=== PATIENT | female | born 1930 | race Caucasian/White ===

== ENCOUNTER 2017-07-06 12:11 | Inpatient (IN) | payer BC, OTHER ==
--- NOTE | 2017-07-06 15:50 | PDOC ---
History of Present Illness - General History Source: Patient, Family Exam Limitations: Clinical Condition - History of Present Illness Initial Comments: 07/06/17 17:27 The patient is a 87 year old female, with a significant past medical history of hypertension, hyperlipidemia, hypothyroidism, overactive bladder, and seizures, who presents to the emergency department with increased confusion and changes in mental status for approximately 2 days. As per daughter, the patient was last known to be at baseline , however, yesterday, daughters brother in law noted increased confusion and changes in speech. Brother in Law has noted patient has been repeating her words and states patient reported she did not know where she was while in her home last night. Daughter reports patient has decreased appetite. Patient endorses mild dry cough, but denies any fever, chills, headache, dizziness, or lightheadedness. She denies any chest pain, shortness of breath, diaphoresis, or palpitations. She denies any abdominal pain, nausea, vomiting, diarrhea, or constipation. She denies any dysuria, hematuria, frequency, or urgency. Patients has no other complaints at this time, but history is limited due to current mental status. Allergies: NKDA Past Surgical History: None reported Social History: Non smoker. No ETOH or recreational drug use. PCP: Dr. Read <Lele Reese - Last Filed: 07/06/17 17:27> <Cindy Carey - Last Filed: 07/06/17 23:08> - General Chief Complaint: Altered Mental Status Stated Complaint: DIZZINESS Time Seen by Provider: 07/06/17 15:24 Past History - Past Medical History CVA: No COPD: No DVT: No Disorders: Yes (OVERACTIVE BLADDER) HTN: Yes Hypercholesterolemia: Yes Seizures: Yes Thyroid Disease: Yes (hypo) - Immunization History Immunization Up to Date: No - Suicide/Smoking/Psychosocial Hx Smoking Status: No Smoking History: Never smoked Have you smoked in the past 12 months: No Number of Cigarettes Smoked Daily: 0 Information on smoking cessation initiated: No Hx Alcohol Use: No Drug/Substance Use Hx: No Substance Use Type: None <Lele Reese - Last Filed: 07/06/17 17:27> <Cnidy Carey - Last Filed: 07/06/17 23:08> - Past Medical History Allergies/Adverse Reactions: Allergies Allergy/AdvReac Type Severity Reaction Status Date / Time No Known Allergies Allergy Verified 07/06/17 12:17 Home Medications: Ambulatory Orders Levothyroxine [Synthroid -] 75 mcg PO DAILY 10/18/13 Hydrochlorothiazide [Hctz -] 25 mg PO DAILY 09/30/14 Simvastatin 10 mg PO DAILY 09/30/14 Review of Systems - Review of Systems Able to Perform ROS?: No Comments:: 07/06/17 17:28 May be limited due to patients clinical condition. CONSTITUTIONAL: Present: Loss of appetite No reported: Fever, Chills, Diaphoresis, Generalized Weakness, Malaise HEENT: No reported: Rhinorrhea, Nasal Congestion, Throat Pain, Throat Swelling, Difficulty Swallowing, Mouth Swelling, Ear Pain, Eye Pain, Visual Changes CARDIOVASCULAR: No reported: Chest Pain, Syncope, Palpitations, Irregular Heart Rate, Lightheadedness, Peripheral Edema RESPIRATORY: Present: Cough No reported: Shortness of Breath, SOB with Exertion, Orthopnea, Wheezing, Stridor, Hemoptysis GASTROINTESTINAL: No reported: Abdominal pain, Abdominal Distension, Nausea, Vomiting, Diarrhea, Constipation, Melena, Hematochezia GENITOURINARY: No reported: Dysuria, Frequency, Urgency, Hesitancy, Flank Pain, Genital Pain MUSCULOSKELETAL: No reported: Myalgia, Arthralgia, Joint Swelling, Back pain, Neck Pain SKIN: No reported: Rash, Itching, Pallor HEMEATOLOGIC/IMMUNOLOGIC: No reported: Easy Bleeding, Easy Bruising, Lymphadenopathy, Frequent infections ENDOCRINE: No reported: Unexplained Weight Gain, Unexplained Weight Loss, Heat Intolerance , Cold Intolerance NEUROLOGIC: Present: Mental status changes No reported: Headache, Focal Weakness, Paresthesias, Vertigo, Lightheadedness, Unsteady Gait, Seizure, Incontinence PSYCHIATRIC: <Mary AnnGersonLele - Last Filed: 07/06/17 17:27> *Physical Exam - Vital Signs Last Vital Signs Temp Pulse Resp BP Pulse Ox 99.0 F 85 17 146/78 95 07/06/17 12:23 07/06/17 12:23 07/06/17 12:23 07/06/17 12:23 07/06/17 12:23 - Physical Exam Comments: 07/06/17 17:28 GENERAL: The patient is awake, alert, andoriented x 1 (self) Nontoxic - in no acute distress. HEAD: Normocephalic, atraumatic. EYES: extraocular movements intact, sclera anicteric, conjunctiva clear. ENT: Normal voice, Moist mucous membranes. NECK: Normal range of motion, supple LUNGS: Breath sounds equal, clear to auscultation bilaterally. No wheezes, no rhonchi, no rales. HEART: Regular rate and rhythm, normal S1 and S2 without murmur, rub or gallop. ABDOMEN: minimal surpapubic tenderness, normoactive bowel sounds. No guarding, no rebound. . No CVA tenderness EXTREMITIES: Normal range of motion, no edema. No clubbing or cyanosis. NEUROLOGICAL: CN2-12 intact and symmetric, repetitive speech, moving upper and lower extermities spontaneously and symmetrically, sensation intact in face, upper/lower extremities PSYCH: Normal mood, normal affect. SKIN:hot touch, Dry, normal turgor, <Mary Ann,Lele - Last Filed: 07/06/17 17:27> - Vital Signs Last Vital Signs Temp Pulse Resp BP Pulse Ox 102.2 F H 92 H 20 152/82 98 07/06/17 21:24 07/06/17 21:24 07/06/17 21:24 07/06/17 21:24 07/06/17 21:24 <Cindy Carey - Last Filed: 07/06/17 23:08> ED Treatment Course - LABORATORY CBC & Chemistry Diagram: 07/06/17 17:25 07/06/17 17:25 - ADDITIONAL ORDERS Additional order review: Laboratory Results 07/06/17 07/06/17 07/06/17 20:50 17:25 17:25 PT with INR INR PTT (Actin FS) VBG pH 7.44 H POC VBG pCO2 41.0 POC VBG pO2 101.0 H Mixed VBG HCO3 27.0 H Sodium Potassium Chloride Carbon Dioxide Anion Gap BUN Creatinine Creat Clearance w eGFR Random Glucose Lactic Acid 1.1 Calcium Magnesium Total Bilirubin AST ALT Alkaline Phosphatase Creatine Kinase Troponin I Total Protein Albumin TSH Urine Color Era Urine Appearance Slcloudy Urine pH 5.0 D Ur Specific [place] 1.028 Urine Protein 1+ H Urine Glucose (UA) Negative Urine Ketones 1+ H Urine Blood Negative Urine Nitrite Negative Urine Bilirubin Negative Urine Urobilinogen 2.0 H Ur Leukocyte Esterase Negative Urine WBC (Auto) 3 Urine RBC (Auto) 5 Ur Epithelial Cells Rare Hyaline Casts 1 Urine Mucus Moderate Blood Type Antibody Screen 07/06/17 07/06/17 07/06/17 17:25 17:25 17:25 PT with INR INR PTT (Actin FS) 29.8 VBG pH POC VBG pCO2 POC VBG pO2 Mixed VBG HCO3 Sodium 137 Potassium 3.3 L Chloride 100 Carbon Dioxide 29 Anion Gap 8 BUN 23 H D Creatinine 0.9 D Creat Clearance w eGFR 59.23 Random Glucose 110 H Lactic Acid Calcium 9.1 Magnesium 2.2 Total Bilirubin 0.5 AST 28 D ALT 31 D Alkaline Phosphatase 63 Creatine Kinase 103 Troponin I < 0.02 Total Protein 7.1 D Albumin 3.8 D TSH 0.25 L Urine Color Urine Appearance Urine pH Ur Specific [place] Urine Protein Urine Glucose (UA) Urine Ketones Urine Blood Urine Nitrite Urine Bilirubin Urine Urobilinogen Ur Leukocyte Esterase Urine WBC (Auto) Urine RBC (Auto) Ur Epithelial Cells Hyaline Casts Urine Mucus Blood Type A POSITIVE Antibody Screen Negative 07/06/17 17:25 PT with INR 11.60 INR 1.03 PTT (Actin FS) VBG pH POC VBG pCO2 POC VBG pO2 Mixed VBG HCO3 Sodium Potassium Chloride Carbon Dioxide Anion Gap BUN Creatinine Creat Clearance w eGFR Random Glucose Lactic Acid Calcium Magnesium Total Bilirubin AST ALT Alkaline Phosphatase Creatine Kinase Troponin I Total Protein Albumin TSH Urine Color Urine Appearance Urine pH Ur Specific [place] Urine Protein Urine Glucose (UA) Urine Ketones Urine Blood Urine Nitrite Urine Bilirubin Urine Urobilinogen Ur Leukocyte Esterase Urine WBC (Auto) Urine RBC (Auto) Ur Epithelial Cells Hyaline Casts Urine Mucus Blood Type Antibody Screen 07/06/17 17:25 RBC 4.76 MCV 88.8 MCHC 33.8 RDW 13.4 D MPV 7.8 Neutrophils % 70.6 Lymphocytes % 14.8 Monocytes % 13.8 H Eosinophils % 0.1 D Basophils % 0.7 - Medications Given in the ED: ED Medications Discontinued Medications Generic Name Dose Route Start Last Admin Trade Name Freq PRN Reason Stop Dose Admin Acetaminophen 650 mg 07/06/17 20:58 07/06/17 21:28 Tylenol - PO 07/06/17 20:59 650 mg ONCE ONE Administration <Cindy Carey - Last Filed: 07/06/17 23:08> Medical Decision Making - Medical Decision Making 07/06/17 16:16 87y F hx of htn, hl, hypothyfidsim, sz, overactive bladder presents with AMS - per family the pt has not been herself since yesterday - alittle more confused, poor appetitie. family states she is more confused than usual, normally she may be a little forgetful but can carry a conversation but today has been very confused and repetitive on exam the pt appears warm to the touch neuro exam intact pulm exam normal mild lower abodmianl tendneess suspect possible UTI/.occult infection, consider CVA, metaoblic dernagement 07/06/17 17:[address] ramirez - request MRI/MRA - CT L MCA questionable <Lele Reese - Last Filed: 07/06/17 17:27> *DC/Admit/Observation/Transfer <Lele Reese - Last Filed: 07/06/17 17:27> <Cindy Carey - Last Filed: 07/06/17 23:08> Diagnosis at time of Disposition: Influenza Altered mental status Qualifiers: Altered mental status type: unspecified Qualified Code(s): R41.82 - Altered mental status, unspecified - Discharge Dispostion Condition at time of disposition: Stable - Referrals Referrals: Crystal Read MD [Primary Care Provider] - - Patient Instructions - Post Discharge Activity
[2017-07-06 17:41] LABS: BASO % 0.7 % (0-2.0); EOS % 0.1 % (0-4.5); HEMATOCRIT 42.2 % (32.4-45.2); HEMOGLOBIN 14.3 GM/dL (10.7-15.3); LYMPH % 14.8 % (8-40); MCHC 33.8 g/dl (32.0-36.0); MEAN CELL VOLUME 88.8 fl (80-96); MEAN PLT VOLUME 7.8 fl (7.5-11.1); MONO % 13.8 % (3.8-10.2); NEUT % 70.6 % (42.8-82.8); PLATELET COUNT 243 K/MM3 (134-434); RBC 4.76 M/mm3 (3.60-5.2); RDW 13.4 % (11.6-15.6); WHITE BLOOD COUNT 7.2 K/mm3 (4.0-10.0)
[2017-07-06 18:08] LABS: ALBUMIN 3.8 g/dl (3.4-5.0); ANION GAP 8 (8-16); BILIRUBIN,TOTAL 0.5 mg/dL (0.2-1.0); BLOOD UREA NITROGEN 23 mg/dL (7-18); CALCIUM 9.1 mg/dL (8.5-10.1); CHLORIDE 100 mmol/L (98-107); CO2 29 mmol/L (21-32); CREATININE 0.9 mg/dL (0.55-1.02); GLUCOSE,RANDOM 110 mg/dL (74-106); MAGNESIUM 2.2 mg/dL (1.8-2.4); POTASSIUM 3.3 mmol/L (3.5-5.1); SGOT/AST 28 U/L (15-37); SGPT/ALT 31 U/L (12-78); SODIUM 137 mmol/L (136-145); TOT PROT 7.1 g/dl (6.4-8.2); VENOUS PH 7.44 (7.32-7.42)
[2017-07-06 18:16] LABS: ALK PHOS 63 U/L (45-117)
[2017-07-06 18:24] LABS: INR 1.03 (0.82-1.09); PROTHROMBIN TIME (PATIENT) 11.6 SEC (9.98-11.88)
[2017-07-06] MEDS ORDERED: ACETAMINOPHEN 325 MG TABLET (FP) PO ONE (20:58)
[2017-07-06 21:21] LABS: URINE APPEARANCE SLCLOUDY; URINE BILIRUBIN NEGATIVE (NEGATIVE); URINE BLOOD NEGATIVE (NEGATIVE); URINE COLOR AMBER; URINE GLUCOSE (UA) NEGATIVE (NEGATIVE); URINE KETONE 1+ (NEGATIVE); URINE LEUK ESTERASE NEGATIVE (NEGATIVE); URINE NITRITE NEGATIVE (NEGATIVE)
[2017-07-06] MEDS ORDERED: ACETAMINOPHEN 325 MG TABLET (FP) ONE (21:26)
[2017-07-06 21:46] LABS: URINE PROTEIN 1+ (NEGATIVE)
[2017-07-06 22:43] LABS: EPI CELLS RARE /HPF (FEW); URINE HYALINE CAST 1 /lpf; URINE MUCUS MODERATE
--- NOTE | 2017-07-06 23:20 | PDOC ---
*Physical Exam - Vital Signs Last Vital Signs Temp Pulse Resp BP Pulse Ox 102.2 F H 92 H 20 152/82 98 07/06/17 21:24 07/06/17 21:24 07/06/17 21:24 07/06/17 21:24 07/06/17 21:24 ED Treatment Course - LABORATORY CBC & Chemistry Diagram: 07/06/17 17:25 07/06/17 17:25 - ADDITIONAL ORDERS Additional order review: Laboratory Results 07/06/17 07/06/17 07/06/17 20:50 17:25 17:25 PT with INR INR PTT (Actin FS) VBG pH 7.44 H POC VBG pCO2 41.0 POC VBG pO2 101.0 H Mixed VBG HCO3 27.0 H Sodium Potassium Chloride Carbon Dioxide Anion Gap BUN Creatinine Creat Clearance w eGFR Random Glucose Lactic Acid 1.1 Calcium Magnesium Total Bilirubin AST ALT Alkaline Phosphatase Creatine Kinase Troponin I Total Protein Albumin TSH Urine Color Era Urine Appearance Slcloudy Urine pH 5.0 D Ur Specific [place] 1.028 Urine Protein 1+ H Urine Glucose (UA) Negative Urine Ketones 1+ H Urine Blood Negative Urine Nitrite Negative Urine Bilirubin Negative Urine Urobilinogen 2.0 H Ur Leukocyte Esterase Negative Urine WBC (Auto) 3 Urine RBC (Auto) 5 Ur Epithelial Cells Rare Hyaline Casts 1 Urine Mucus Moderate Blood Type Antibody Screen 07/06/17 07/06/17 07/06/17 17:25 17:25 17:25 PT with INR INR PTT (Actin FS) 29.8 VBG pH POC VBG pCO2 POC VBG pO2 Mixed VBG HCO3 Sodium 137 Potassium 3.3 L Chloride 100 Carbon Dioxide 29 Anion Gap 8 BUN 23 H D Creatinine 0.9 D Creat Clearance w eGFR 59.23 Random Glucose 110 H Lactic Acid Calcium 9.1 Magnesium 2.2 Total Bilirubin 0.5 AST 28 D ALT 31 D Alkaline Phosphatase 63 Creatine Kinase 103 Troponin I < 0.02 Total Protein 7.1 D Albumin 3.8 D TSH 0.25 L Urine Color Urine Appearance Urine pH Ur Specific [place] Urine Protein Urine Glucose (UA) Urine Ketones Urine Blood Urine Nitrite Urine Bilirubin Urine Urobilinogen Ur Leukocyte Esterase Urine WBC (Auto) Urine RBC (Auto) Ur Epithelial Cells Hyaline Casts Urine Mucus Blood Type A POSITIVE Antibody Screen Negative 07/06/17 17:25 PT with INR 11.60 INR 1.03 PTT (Actin FS) VBG pH POC VBG pCO2 POC VBG pO2 Mixed VBG HCO3 Sodium Potassium Chloride Carbon Dioxide Anion Gap BUN Creatinine Creat Clearance w eGFR Random Glucose Lactic Acid Calcium Magnesium Total Bilirubin AST ALT Alkaline Phosphatase Creatine Kinase Troponin I Total Protein Albumin TSH Urine Color Urine Appearance Urine pH Ur Specific [place] Urine Protein Urine Glucose (UA) Urine Ketones Urine Blood Urine Nitrite Urine Bilirubin Urine Urobilinogen Ur Leukocyte Esterase Urine WBC (Auto) Urine RBC (Auto) Ur Epithelial Cells Hyaline Casts Urine Mucus Blood Type Antibody Screen 07/06/17 22:10 Influenza Types A,B Antigen (BRUCE) - Final Nasopharyngeal Swab - Final 07/06/17 17:25 RBC 4.76 MCV 88.8 MCHC 33.8 RDW 13.4 D MPV 7.8 Neutrophils % 70.6 Lymphocytes % 14.8 Monocytes % 13.8 H Eosinophils % 0.1 D Basophils % 0.7 - Medications Given in the ED: ED Medications Discontinued Medications Generic Name Dose Route Start Last Admin Trade Name Freq PRN Reason Stop Dose Admin Acetaminophen 650 mg 07/06/17 20:58 07/06/17 21:28 Tylenol - PO 07/06/17 20:59 650 mg ONCE ONE Administration Medical Decision Making - Medical Decision Making 07/06/17 23:44 Late entry- patient endorsed to me at 7pm signout by Dr. Reese. Presented with AMS , difficulty with word-finding x2 days. She denies any complaints at present. Found to have fever on rectal temp. UA was negative, but flu swab was positive. CTH was abnormal, but unclear if this is related to current presentation. Discussed with Dr. Moreira regarding admission, flu swab, and CT findings as well as recommendation for MRI/MRA. Will admit to his service. *DC/Admit/Observation/Transfer Diagnosis at time of Disposition: Influenza Altered mental status Qualifiers: Altered mental status type: unspecified Qualified Code(s): R41.82 - Altered mental status, unspecified Sepsis Qualifiers: Sepsis type: sepsis due to unspecified organism Qualified Code(s): A41.9 - Sepsis, unspecified organism Stroke Qualifiers: CVA mechanism: unspecified Qualified Code(s): I63.9 - Cerebral infarction, unspecified - Discharge Dispostion Condition at time of disposition: Stable Admit: Yes - Referrals - Patient Instructions - Post Discharge Activity
[2017-07-06] MEDS ORDERED: SODIUM CHLORIDE 1,000 ML IV SCH (23:30)
--- NOTE | 2017-07-06 23:55 | HP ---
Admitting History and Physical - Primary Care Physician PCP: Dr Janie Alva - Admission History of Present Illness: 87 year old female, with a significant past medical history of hypertension, hyperlipidemia, hypothyroidism, overactive bladder, and seizures, admitted with increased confusion and changes in mental status for approximately 2 days. As per son, the patient was last known to be at baseline , however, yesterday, daughters brother in law noted increased confusion and changes in speech. Brother in Law has noted patient has been repeating her words and states patient reported she did not know where she was while in her home last night. Daughter reports patient has decreased appetite. Patient endorses mild dry cough, but denies any fever, chills, headache, dizziness, or lightheadedness. She denies any chest pain, shortness of breath, diaphoresis, or palpitations. She denies any abdominal pain, nausea, vomiting, diarrhea, or constipation. She denies any dysuria, hematuria, frequency, or urgency. Patients has no other complaints at this time, but history is limited due to current mental status. History Source: Patient, Family Member, Medical Record Limitations to Obtaining History: Dementia - Past Medical History [employer]: Yes: Dementia Cardiovascular: Yes: HTN, Hyperlipdemia Musculoskeletal: Yes: Osteoarthritis - Smoking History Smoking history: Never smoked Have you smoked in the past 12 months: No Aproximately how many cigarettes per day: 0 - Alcohol/Substance Use Hx Alcohol Use: No Home Medications - Allergies Allergies/Adverse Reactions: Allergies Allergy/AdvReac Type Severity Reaction Status Date / Time No Known Allergies Allergy Verified 07/06/17 12:17 - Home Medications Home Medications: Ambulatory Orders Levothyroxine [Synthroid -] 75 mcg PO DAILY 10/18/13 Hydrochlorothiazide [Hctz -] 25 mg PO DAILY 09/30/14 Simvastatin 10 mg PO DAILY 09/30/14 Physical Examination Vital Signs: Vital Signs Temperature 102.2 F H 07/06/17 21:24 Pulse Rate 92 H 07/06/17 21:24 Respiratory Rate 20 07/06/17 21:24 Blood Pressure 152/82 07/06/17 21:24 O2 Sat by Pulse Oximetry (%) 98 07/06/17 21:24 Labs: CBC, BMP 07/06/17 17:25 07/06/17 17:25 Problem List - Problems (1) Altered mental status Code(s): R41.82 - ALTERED MENTAL STATUS, UNSPECIFIED Qualifiers: Altered mental status type: unspecified Qualified Code(s): R41.82 - Altered mental status, unspecified (2) Sepsis Code(s): A41.9 - SEPSIS, UNSPECIFIED ORGANISM Qualifiers: Sepsis type: sepsis due to unspecified organism Qualified Code(s): A41.9 - Sepsis, unspecified organism (3) Influenza Code(s): J11.1 - FLU DUE TO UNIDENTIFIED INFLUENZA VIRUS W OTH RESP MANIFEST (4) Stroke Code(s): I63.9 - CEREBRAL INFARCTION, UNSPECIFIED Qualifiers: CVA mechanism: unspecified Qualified Code(s): I63.9 - Cerebral infarction, unspecified (5) Hypokalemia Code(s): E87.6 - HYPOKALEMIA Assessment/Plan (1) Altered mental status Code(s): R41.82 - ALTERED MENTAL STATUS, UNSPECIFIED Qualifiers: Altered mental status type: unspecified Qualified Code(s): R41.82 - Altered mental status, unspecified (2) Influenza Code(s): J11.1 - FLU DUE TO UNIDENTIFIED INFLUENZA VIRUS W OTH RESP MANIFEST (3) Sepsis Code(s): A41.9 - SEPSIS, UNSPECIFIED ORGANISM Qualifiers: Sepsis type: sepsis due to unspecified organism Qualified Code(s): A41.9 - Sepsis, unspecified organism (4) Stroke Code(s): I63.9 - CEREBRAL INFARCTION, UNSPECIFIED Qualifiers: CVA mechanism: unspecified Qualified Code(s): I63.9 - Cerebral infarction, unspecified (5) Hypokalemia Code(s): E87.6 - HYPOKALEMIA
[2017-07-07] MEDS ORDERED: OSELTAMIVIR PHOSPHATE 75 MG CAPSULE PO ONE (00:46)
[2017-07-07] MEDS ORDERED: POTASSIUM CHLORIDE TABS 10 MEQ TABLET.ER (FP) ONE (00:56)
[2017-07-07] MEDS ORDERED: OSELTAMIVIR PHOSPHATE 75 MG CAPSULE ONE (00:56)
[2017-07-07] MEDS ORDERED: HEPARIN NA (PORCINE) 5,000 UNITS/ML 1ML VIAL ONE (00:57)
[2017-07-07] MEDS ORDERED: KCL 10 MEQ IVPB 10 MEQ/100 ML INFUS.BAG IVPB ONE ×2 (00:58→02:54)
[2017-07-07] MEDS: KCL 10 MEQ IVPB 10 MEQ/100 ML INFUS.BAG IVPB SCH ×2 (01:21→04:00)
[2017-07-07] MEDS ORDERED: SODIUM CHLORIDE 1,000 ML IV STA (01:35)
[2017-07-07 02:36] LABS: ANION GAP 13 (8-16); BLOOD UREA NITROGEN 29 mg/dL (7-18); CALCIUM 9.1 mg/dL (8.5-10.1); CHLORIDE 101 mmol/L (98-107); CO2 25 mmol/L (21-32); CREATININE 1.2 mg/dL (0.55-1.02); GLUCOSE,RANDOM 136 mg/dL (74-106); SODIUM 139 mmol/L (136-145)
[2017-07-07 02:40] LABS: POTASSIUM 2.8 mmol/L (3.5-5.1)
[2017-07-07] MEDS: D5-1/2NS+20 MEQ KCL - 20 MEQ/1,000 ML INFUS.BAG IV SCH (03:57)
[2017-07-07 06:16] LABS: BASO % 0.7 % (0-2.0); EOS % 0.1 % (0-4.5); HEMATOCRIT 39.1 % (32.4-45.2); HEMOGLOBIN 13.3 GM/dL (10.7-15.3); LYMPH % 19.8 % (8-40); MCH 30.4 pg (25.7-33.7); MEAN CELL VOLUME 89.5 fl (80-96); MEAN PLT VOLUME 7.5 fl (7.5-11.1); MONO % 12.5 % (3.8-10.2); NEUT % 66.9 % (42.8-82.8); PLATELET COUNT 200 K/MM3 (134-434); RBC 4.37 M/mm3 (3.60-5.2); RDW 13.1 % (11.6-15.6); WHITE BLOOD COUNT 6.3 K/mm3 (4.0-10.0)
[2017-07-07] MEDS ORDERED: LEVOTHYROXINE NA 25 MCG TABLET (FP) ONE (06:52)
[2017-07-07] MEDS ORDERED: POTASSIUM CHLORIDE TABS 20 MEQ TABLET.ER (FP) PO ONE (06:52)
[2017-07-07] MEDS: POTASSIUM CHLORIDE TABS 20 MEQ TABLET.ER (FP) PO SCH ×2 (07:06→14:32)
[2017-07-07] MEDS: LEVOTHYROXINE NA 75 MCG TABLET (FP) PO SCH (07:06)
[2017-07-07] MEDS: HYDROCHLOROTHIAZIDE 25 MG TABLET (FP) PO SCH (10:45)
[2017-07-07] MEDS: HEPARIN NA (PORCINE) 5,000 UNITS/ML 1ML VIAL SQ SCH ×2 (10:46→21:19)
--- NOTE | 2017-07-07 13:04 | EKG ---
Test Reason : Blood Pressure : / mmHG Vent. Rate : 084 BPM Atrial Rate : 084 BPM P-R Int : 136 ms QRS Dur : 086 ms QT Int : 358 ms P-R-T Axes : 020 -26 026 degrees QTc Int : 423 ms SINUS RHYTHM WITH PREMATURE ATRIAL COMPLEXES NONSPECIFIC ST ABNORMALITY ABNORMAL ECG WHEN COMPARED WITH ECG OF 18-OCT-2013 06:23, PREMATURE ATRIAL COMPLEXES ARE NOW PRESENT Confirmed by JACKELIN FINLEY, CHUCKY ([id number]) on 07/07/2017 1:04:34 PM Referred By: Confirmed By:CHUCKY BENÍTEZ MD
[2017-07-07 15:58] VITALS: BMI 28.7
[2017-07-07] MEDS ORDERED: ACETAMINOPHEN 325 MG TABLET (FP) PO PRN (16:59)
--- NOTE | 2017-07-07 18:35 | CON.ID ---
Consult Consult Specialty:: infectious diseases Reason for Consultation:: fever,confusion - History of Present Illness Chief Complaint: confusion History of Present Illness: 87 year old female, with a significant past medical history of hypertension, hyperlipidemia, hypothyroidism, overactive bladder, and seizures, admitted with increased confusion and changes in mental status for approximately 2 days. As per son, the patient was last known to be at baseline , however, yesterday, daughters brother in law noted increased confusion and changes in speech. Brother in Law has noted patient has been repeating her words and states patient reported she did not know where she was while in her home last night. Daughter reports patient has decreased appetite. Patient endorses mild dry cough, but denies any fever, chills, headache, dizziness, or lightheadedness. She denies any chest pain, shortness of breath, diaphoresis, or palpitations. She denies any abdominal pain, nausea, vomiting, diarrhea, or constipation. She denies any dysuria, hematuria, frequency, or urgency. Patients has no other complaints at this time, but history is limited due to current mental status. according to the son he had flu during and then he thinks he gave it to his mother and son patient was worked up here and did find the flu to be positive patient is awake and alert but she is confused son in the room who gave me most of the history.also of note is that the patient has started to cough though currently it is a dry cough also patient has spiked a fever now - History Source History Provided By: Family Member Limitations to Obtaining History: Clinical Condition - Alcohol/Substance Use Hx Alcohol Use: No - Smoking History Smoking history: Never smoked Have you smoked in the past 12 months: No Aproximately how many cigarettes per day: 0 Home Medications - Allergies Allergies/Adverse Reactions: Allergies Allergy/AdvReac Type Severity Reaction Status Date / Time No Known Allergies Allergy Verified 07/06/17 12:17 - Home Medications Home Medications: Ambulatory Orders Levothyroxine [Synthroid -] 75 mcg PO DAILY 10/18/13 Hydrochlorothiazide [Hctz -] 25 mg PO DAILY 09/30/14 Simvastatin 10 mg PO DAILY 09/30/14 Review of Systems Unable to obtain ROS, reason: unable Physical Exam Vital Signs: Vital Signs Temperature 101 F H 07/07/17 14:30 Pulse Rate 67 07/07/17 14:30 Respiratory Rate 18 07/07/17 14:30 Blood Pressure 162/70 07/07/17 14:30 O2 Sat by Pulse Oximetry (%) 94 L 07/07/17 14:30 Constitutional: Yes: Well Nourished, No Distress, Other Eyes: Yes: Conjunctiva Clear HENT: Yes: Atraumatic Neck: Yes: Supple, Trachea Midline Cardiovascular: Yes: Regular Rate and Rhythm Respiratory: Yes: On Nasal O2, Poor Air Entry, Rhonchi, Other (crackles) Gastrointestinal: Yes: Normal Bowel Sounds, Soft Musculoskeletal: Yes: WNL Extremities: Yes: WNL Neurological: Yes: Alert, Confusion Psychiatric: Yes: Alert, Other Labs: CBC, BMP 07/07/17 06:00 Imaging - Results Chest X-ray: Report Reviewed, Image Reviewed Cat Scan: Report Reviewed, Image Reviewed Assessment/Plan after looking at the history and the patient i am worried that the patient could be heading towards development of pneumonia.also her creatinine has increased influenza fever confusion pna plan will stat patient on zosyn for now will see how the patient behaves hydration close watch await neurology input
[2017-07-07] MEDS ORDERED: PIPERACILLIN/TAZOB 3.375 GM 50 ML IVPB SCH (18:45)
[2017-07-07] MEDS: PIPERACILLIN/TAZOB 3.375 GM 3.375 GM in DEXTROSE 5%-WATER - 100 ML IVPB SCH (19:31)
[2017-07-07 19:38] LABS: ALBUMIN 3.2 g/dl (3.4-5.0); ANION GAP 5 (8-16); BILIRUBIN,TOTAL 0.4 mg/dL (0.2-1.0); BLOOD UREA NITROGEN 18 mg/dL (7-18); CHLORIDE 105 mmol/L (98-107); CO2 28 mmol/L (21-32); CREATININE 0.7 mg/dL (0.55-1.02); GLUCOSE,RANDOM 109 mg/dL (74-106); SGOT/AST 40 U/L (15-37); SGPT/ALT 38 U/L (12-78); SODIUM 138 mmol/L (136-145); TOT PROT 5.8 g/dl (6.4-8.2)
[2017-07-07 19:39] LABS: ALK PHOS 49 U/L (45-117)
--- NOTE | 2017-07-07 20:16 | PN ---
Progress Note, Physician Chief Complaint: Pt having fever of 101 today History of Present Illness: 87 year old female, with a significant past medical history of hypertension, hyperlipidemia, hypothyroidism, overactive bladder, and seizures, admitted with increased confusion and changes in mental status for approximately 2 days. As per son, the patient was last known to be at baseline , however, yesterday, daughters brother in law noted increased confusion and changes in speech. Brother in Law has noted patient has been repeating her words and states patient reported she did not know where she was while in her home last night. Daughter reports patient has decreased appetite. Patient endorses mild dry cough, but denies any fever, chills, headache, dizziness, or lightheadedness. She denies any chest pain, shortness of breath, diaphoresis, or palpitations. She denies any abdominal pain, nausea, vomiting, diarrhea, or constipation. She denies any dysuria, hematuria, frequency, or urgency. Patients has no other complaints at this time, but history is limited due to current mental status. - Current Medication List Current Medications: Active Medications Acetaminophen (Tylenol -) 650 mg PO Q6H PRN PRN Reason: FEVER OR PAIN Heparin Sodium (Porcine) (Heparin -) 5,000 unit SQ BID [facility] Last Admin: 07/07/17 10:46 Dose: 5,000 unit Hydrochlorothiazide (Hctz -) 25 mg PO DAILY [facility] Last Admin: 07/07/17 10:45 Dose: 25 mg Potassium Chloride/Dextrose/Sod Cl (D5-1/2ns+20 Meq Kcl -) 20 meq in 1,000 mls @ 75 mls/hr IV ASDIR [facility] Last Admin: 07/07/17 03:57 Dose: 75 mls/hr Piperacillin Sod/Tazobactam (Sod 3.375 gm/ Dextrose) 100 mls @ 200 mls/hr IVPB Q8H-IV [facility] Last Admin: 07/07/17 19:31 Dose: 200 mls/hr Levothyroxine Sodium (Synthroid -) 75 mcg PO DAILY@0700 [facility] Last Admin: 07/07/17 07:06 Dose: 75 mcg Oseltamivir Phosphate (Tamiflu -) 30 mg PO BID [facility] Stop: 07/12/17 21:59 - Objective Vital Signs: Vital Signs Temperature 101 F H 07/07/17 14:30 Pulse Rate 67 07/07/17 14:30 Respiratory Rate 18 07/07/17 14:30 Blood Pressure 162/70 07/07/17 14:30 O2 Sat by Pulse Oximetry (%) 94 L 07/07/17 14:30 Constitutional: Yes: No Distress Eyes: Yes: Conjunctiva Clear, EOM Intact HENT: Yes: Atraumatic, Normocephalic Neck: Yes: Supple, Trachea Midline Cardiovascular: Yes: Regular Rate and Rhythm, S1, S2 Respiratory: Yes: Regular, CTA Bilaterally Gastrointestinal: Yes: Normal Bowel Sounds, Soft Labs: CBC, BMP 07/07/17 06:00 07/07/17 17:30 INR, PTT INR 1.03 (0.82-1.09) 07/06/17 17:25 Problem List - Problems (1) Altered mental status Code(s): R41.82 - ALTERED MENTAL STATUS, UNSPECIFIED Qualifiers: Altered mental status type: unspecified Qualified Code(s): R41.82 - Altered mental status, unspecified (2) Influenza Code(s): J11.1 - FLU DUE TO UNIDENTIFIED INFLUENZA VIRUS W OTH RESP MANIFEST (3) Sepsis Code(s): A41.9 - SEPSIS, UNSPECIFIED ORGANISM Qualifiers: Sepsis type: sepsis due to unspecified organism Qualified Code(s): A41.9 - Sepsis, unspecified organism (4) Stroke Code(s): I63.9 - CEREBRAL INFARCTION, UNSPECIFIED Qualifiers: CVA mechanism: unspecified Qualified Code(s): I63.9 - Cerebral infarction, unspecified (5) Hypokalemia Code(s): E87.6 - HYPOKALEMIA Assessment/Plan (1) Altered mental status Code(s): R41.82 - ALTERED MENTAL STATUS, UNSPECIFIED Qualifiers: Altered mental status type: unspecified Qualified Code(s): R41.82 - Altered mental status, unspecified (2) Influenza Code(s): J11.1 - FLU DUE TO UNIDENTIFIED INFLUENZA VIRUS W OTH RESP MANIFEST (3) Sepsis Code(s): A41.9 - SEPSIS, UNSPECIFIED ORGANISM Qualifiers: Sepsis type: sepsis due to unspecified organism Qualified Code(s): A41.9 - Sepsis, unspecified organism (4) Stroke Code(s): I63.9 - CEREBRAL INFARCTION, UNSPECIFIED Qualifiers: CVA mechanism: unspecified Qualified Code(s): I63.9 - Cerebral infarction, unspecified (5) Hypokalemia Code(s): E87.6 - HYPOKALEMIA
[2017-07-07] MEDS: OSELTAMIVIR PHOSPHATE 30 MG CAPSULE PO SCH (21:19)
[2017-07-08] MEDS: D5-1/2NS+20 MEQ KCL - 20 MEQ/1,000 ML INFUS.BAG IV SCH ×2 (01:55→22:56)
[2017-07-08] MEDS: PIPERACILLIN/TAZOB 3.375 GM 3.375 GM in DEXTROSE 5%-WATER - 100 ML IVPB SCH ×3 (01:55→17:39)
[2017-07-08] MEDS: LEVOTHYROXINE NA 75 MCG TABLET (FP) PO SCH (06:04)
[2017-07-08 08:44] LABS: CHOLESTEROL 145 mg/dL (50-200); TRIGLYCERIDES 152 mg/dL (35-160)
[2017-07-08 08:46] LABS: HDL CHOLESTEROL 41 mg/dL (40-60); LDL CHOLESTEROL (ONLY SJRH) 79 mg/dL (5-100)
[2017-07-08] MEDS: HEPARIN NA (PORCINE) 5,000 UNITS/ML 1ML VIAL SQ SCH ×2 (09:40→21:39)
[2017-07-08] MEDS: HYDROCHLOROTHIAZIDE 25 MG TABLET (FP) PO SCH (09:40)
[2017-07-08] MEDS: OSELTAMIVIR PHOSPHATE 30 MG CAPSULE PO SCH ×2 (09:41→21:40)
--- NOTE | 2017-07-08 11:15 | CONSULT ---
Admitting History and Physical - Primary Care Physician PCP: Cecilio Alva - Admission History of Present Illness: Per EMR: 87 year old female, with a significant past medical history of hypertension, hyperlipidemia, hypothyroidism, overactive bladder, and seizures, admitted with increased confusion and changes in mental status for approximately 2 days. As per son, the patient was last known to be at baseline , however, yesterday, daughters brother in law noted increased confusion and changes in speech. Brother in Law has noted patient has been repeating her words and states patient reported she did not know where she was while in her home last night. Daughter reports patient has decreased appetite. Patient endorses mild dry cough, but denies any fever, chills, headache, dizziness, or lightheadedness. She denies any chest pain, shortness of breath, diaphoresis, or palpitations. She denies any abdominal pain, nausea, vomiting, diarrhea, or constipation. She denies any dysuria, hematuria, frequency, or urgency. Patients has no other complaints at this time, but history is limited due to current mental status. Selected Entries 07/06/17 07/06/17 07/07/17 12:23 21:24 06:00 Supper Temperature 99.0 F 102.2 F H 98.8 F 07/07/17 07/07/17 07/07/17 07:30 12:41 14:30 Supper Temperature 99.4 F 99.2 F 101 F H 07/07/17 07/07/17 07/08/17 18:30 21:00 02:42 Supper 50% Temperature 99.3 F 98.9 F 99.3 F 07/08/17 07/08/17 06:14 09:35 Supper Temperature 98.5 F 98.1 F Laboratory Tests 07/07/17 06:00 WBC 6.3 History Source: Family Member, Medical Record Limitations to Obtaining History: Clinical Condition - Smoking History Smoking history: Never smoked Have you smoked in the past 12 months: No Aproximately how many cigarettes per day: 0 - Alcohol/Substance Use Hx Alcohol Use: No History - Admission Reason For Visit: SEPSIS,ALTERED MENTAL STATUS,INFLUENZA, - Diagnostics X-ray: Report Reviewed CT Scan: Report Reviewed - General Mental Status: Awake and Alert, Able to Follow Commands, Forgetful, Confused Attention: Intact Ability to Follow Directions: Good Head/Neck Control: WFL - Hearing Hearing: Impaired Hearing Aide: No With Patient: No Speech Evaluation - Communication Primary Language: CHINESE Communication: Yes: Within Normal Limits Oral Expression Ability: Yes: No Impairment - Speech Production Able to Make Needs Known: Yes: WNL Intelligibility: Yes: WNL - Speech Characteristics Voice Loudness: Normal Voice Pitch: Yes: Normal Voice Phonatory-based Quality: Yes: Normal Speech Pattern: Normal Speech Clarity: < 100% Nasal Resonance: Normal Articulation: Yes: Precise - Language/Auditory Comprehension Follows: Yes: 1 Stage Simple Commands - Language/Verbal Expression Able to Communicate Wants and Needs: Yes: WNL Functional Communication Status: Yes: WNL - Swallow Evaluation/Bedside Assessment Current Nutritional Intake: Regular, Thin Liquids Oral Secretions: Yes: WFL Dentition: Yes: Adequate Facial Symmetry at Rest: Symmetrical Facial Symmetry on Retraction: Symmetrical Facial Movement: Controlled Against Resistance Opening: Normal Against Resistance Closing: Normal Pucker Lips: Normal Smile: Normal Lingual Movement: Normal, Symmetric Lingual Speed of Movement: Normal Lingual Movement Strgth Against Opposition: Normal Lingual Movement Characteristics: Normal Velopharyngeal Movement: Normal Laryngeal Movement: Able to Palpate Labial Seal: WFL Chewing: WFL Oral Prep Time: WFL A-P Transit: WFL Timing of Swallow: WFL Coughing/Throat Clear: No Change in Voice: No Recommendations - Speech Evaluation, Impression/Plan Impression: Verbal, [place], not clearly oriented, confused. Baseline? Pt reportedly lives alone,independent in [place], and drives.Her family lives nearby and assists. They report she is normally forgetful. (+) Influenza - Dysphagia Impressions/Plan Swallowing Skills: WFL Dysphagia Impressions: No Impairment *Silent aspiration: cannot be R/O at bedside Recommendations: Other (Monitor tolerance.) - Recommendations Diet Consistency: Regular Medication Administration: Whole with water Liquids: Thin Liquids Supplement: Other (May benefit from supplement. "Picky eater" per Grandson.)
--- NOTE | 2017-07-08 11:36 | PN ---
Progress Note, Physician History of Present Illness: patient looks much more awake and alert grandson in the room no complaints sitting in chair - Current Medication List Current Medications: Active Medications Acetaminophen (Tylenol -) 650 mg PO Q6H PRN PRN Reason: FEVER OR PAIN Heparin Sodium (Porcine) (Heparin -) 5,000 unit SQ BID [facility] Last Admin: 07/08/17 09:40 Dose: 5,000 unit Hydrochlorothiazide (Hctz -) 25 mg PO DAILY [facility] Last Admin: 07/08/17 09:40 Dose: 25 mg Potassium Chloride/Dextrose/Sod Cl (D5-1/2ns+20 Meq Kcl -) 20 meq in 1,000 mls @ 75 mls/hr IV ASDIR [facility] Last Admin: 07/08/17 01:55 Dose: 75 mls/hr Piperacillin Sod/Tazobactam (Sod 3.375 gm/ Dextrose) 100 mls @ 200 mls/hr IVPB Q8H-IV [facility] Last Admin: 07/08/17 09:41 Dose: 200 mls/hr Levothyroxine Sodium (Synthroid -) 75 mcg PO DAILY@0700 [facility] Last Admin: 07/08/17 06:04 Dose: 75 mcg Oseltamivir Phosphate (Tamiflu -) 30 mg PO BID [facility] Stop: 07/12/17 21:59 Last Admin: 07/08/17 09:41 Dose: 30 mg - Objective Vital Signs: Vital Signs Temperature 98.1 F 07/08/17 09:35 Pulse Rate 67 07/08/17 09:35 Respiratory Rate 20 07/08/17 09:35 Blood Pressure 120/66 07/08/17 09:35 O2 Sat by Pulse Oximetry (%) 96 07/08/17 09:00 Constitutional: Yes: No Distress, Calm Cardiovascular: Yes: Regular Rate and Rhythm Respiratory: Yes: Regular, CTA Bilaterally, On Nasal O2 Gastrointestinal: Yes: Normal Bowel Sounds, Soft Musculoskeletal: Yes: WNL Extremities: Yes: WNL Neurological: Yes: Alert, Confusion Psychiatric: Yes: Alert Labs: CBC, BMP 07/07/17 06:00 07/07/17 17:30 INR, PTT INR 1.03 (0.82-1.09) 07/06/17 17:25 Assessment/Plan after looking at the history and the patient i am worried that the patient could be heading towards development of pneumonia.also her creatinine has increased influenza fever confusion pna plan continue abx rest as per primary
--- NOTE | 2017-07-08 12:18 | CON.NEURO ---
Consult - Alcohol/Substance Use Hx Alcohol Use: No - Smoking History Smoking history: Never smoked Have you smoked in the past 12 months: No Aproximately how many cigarettes per day: 0 Home Medications - Allergies Allergies/Adverse Reactions: Allergies Allergy/AdvReac Type Severity Reaction Status Date / Time No Known Allergies Allergy Verified 07/06/17 12:17 - Home Medications Home Medications: Ambulatory Orders Levothyroxine [Synthroid -] 75 mcg PO DAILY 10/18/13 Hydrochlorothiazide [Hctz -] 25 mg PO DAILY 09/30/14 Simvastatin 10 mg PO DAILY 09/30/14 Physical Exam-Neuro Vital Signs: Vital Signs Temperature 98.1 F 07/08/17 09:35 Pulse Rate 67 07/08/17 09:35 Respiratory Rate 20 07/08/17 09:35 Blood Pressure 120/66 07/08/17 09:35 O2 Sat by Pulse Oximetry (%) 96 07/08/17 09:00 Labs: CBC, BMP 07/07/17 06:00 07/07/17 17:30 INR, PTT INR 1.03 (0.82-1.09) 07/06/17 17:25 Assessment/Plan cc confusion HPI 87 year old female histoyr of HTN, HLP, Hypothyroidism, seizure admitted for confusion following high grade fever and diagnosed with flu. She is accompanied by her son and grand son. There has not been any seizure, no headhace no dysarthria, diplopia or weakness or numbness. CT head is unremarkable. She is being treated for flu and abx by id. Past Medical History as above lives alone and able to drive, denies any toxic habit SH,FH,ROS reviewed in chart NKDA Allergies/Adverse Reactions: Allergies Allergy/AdvReac Type Severity Reaction Status Date / Time No Known Allergies Allergy Verified 07/06/17 12:17 Home Medications: Levothyroxine [Synthroid -] 75 mcg PO DAILY 10/18/13 Hydrochlorothiazide [Hctz -] 25 mg PO DAILY 09/30/14 Simvastatin 10 mg PO DAILY 09/30/14 Neurological Exakmination Alert , oriented x 1, she tell she is in building no [place], she was telling it is june and end of month, able to follow command Her mental status has improved since yesterday She is sitting in chair and able to recognize her son and grand son and able to tell me her age CN all intact Motor 5/5 all intact Sensation is normal CT head is unremarkable Assessment- Delirium secondary to Intercurrent illness ( Flu) , unlikley to be status epilepticus, stroke or meningitis Plan- suggest to do b12,folate tsh and follow up outpatient - she may have underlying cognitive problem ( MCI) and would defer to outpatient eval for making any diagnosis - No Need for spinal tap, eeg or mri of brain - follow up as outpatient Thanking you so much Stas Jiménez MD
--- NOTE | 2017-07-08 16:02 | PN ---
Progress Note, Physician Chief Complaint: Pt fever and Orientation is better Pt had also swallowing evluation and neurology also History of Present Illness: 87 year old female, with a significant past medical history of hypertension, hyperlipidemia, hypothyroidism, overactive bladder, and seizures, admitted with increased confusion and changes in mental status for approximately 2 days. As per son, the patient was last known to be at baseline , however, yesterday, daughters brother in law noted increased confusion and changes in speech. Brother in Law has noted patient has been repeating her words and states patient reported she did not know where she was while in her home last night. Daughter reports patient has decreased appetite. Patient endorses mild dry cough, but denies any fever, chills, headache, dizziness, or lightheadedness. She denies any chest pain, shortness of breath, diaphoresis, or palpitations. She denies any abdominal pain, nausea, vomiting, diarrhea, or constipation. She denies any dysuria, hematuria, frequency, or urgency. Patients has no other complaints at this time, but history is limited due to current mental status. Pt is better today Better orientated - Current Medication List Current Medications: Active Medications Acetaminophen (Tylenol -) 650 mg PO Q6H PRN PRN Reason: FEVER OR PAIN Heparin Sodium (Porcine) (Heparin -) 5,000 unit SQ BID [facility] Last Admin: 07/08/17 09:40 Dose: 5,000 unit Hydrochlorothiazide (Hctz -) 25 mg PO DAILY [facility] Last Admin: 07/08/17 09:40 Dose: 25 mg Potassium Chloride/Dextrose/Sod Cl (D5-1/2ns+20 Meq Kcl -) 20 meq in 1,000 mls @ 75 mls/hr IV ASDIR [facility] Last Admin: 07/08/17 01:55 Dose: 75 mls/hr Piperacillin Sod/Tazobactam (Sod 3.375 gm/ Dextrose) 100 mls @ 200 mls/hr IVPB Q8H-IV [facility] Last Admin: 07/08/17 09:41 Dose: 200 mls/hr Levothyroxine Sodium (Synthroid -) 75 mcg PO DAILY@0700 [facility] Last Admin: 07/08/17 06:04 Dose: 75 mcg Oseltamivir Phosphate (Tamiflu -) 30 mg PO BID [facility] Stop: 07/12/17 21:59 Last Admin: 07/08/17 09:41 Dose: 30 mg - Objective Vital Signs: Vital Signs Temperature 98.1 F 07/08/17 09:35 Pulse Rate 67 07/08/17 09:35 Respiratory Rate 20 07/08/17 09:35 Blood Pressure 120/66 07/08/17 09:35 O2 Sat by Pulse Oximetry (%) 96 07/08/17 09:00 Constitutional: Yes: No Distress Eyes: Yes: Conjunctiva Clear, EOM Intact HENT: Yes: Atraumatic, Normocephalic Neck: Yes: Supple, Trachea Midline Cardiovascular: Yes: Regular Rate and Rhythm, S1, S2 Respiratory: Yes: Regular, CTA Bilaterally Gastrointestinal: Yes: Normal Bowel Sounds, Soft Edema: No Labs: CBC, BMP 07/07/17 06:00 07/07/17 17:30 INR, PTT INR 1.03 (0.82-1.09) 07/06/17 17:25 Problem List - Problems (1) Altered mental status Code(s): R41.82 - ALTERED MENTAL STATUS, UNSPECIFIED Qualifiers: Altered mental status type: unspecified Qualified Code(s): R41.82 - Altered mental status, unspecified (2) Influenza Code(s): J11.1 - FLU DUE TO UNIDENTIFIED INFLUENZA VIRUS W OTH RESP MANIFEST (3) Sepsis Code(s): A41.9 - SEPSIS, UNSPECIFIED ORGANISM Qualifiers: Sepsis type: sepsis due to unspecified organism Qualified Code(s): A41.9 - Sepsis, unspecified organism (4) Stroke Code(s): I63.9 - CEREBRAL INFARCTION, UNSPECIFIED Qualifiers: CVA mechanism: unspecified Qualified Code(s): I63.9 - Cerebral infarction, unspecified (5) Hypokalemia Code(s): E87.6 - HYPOKALEMIA Assessment/Plan (1) Altered mental status Code(s): R41.82 - ALTERED MENTAL STATUS, UNSPECIFIED Qualifiers: Altered mental status type: unspecified Qualified Code(s): R41.82 - Altered mental status, unspecified (2) Influenza Code(s): J11.1 - FLU DUE TO UNIDENTIFIED INFLUENZA VIRUS W OTH RESP MANIFEST (3) Sepsis Code(s): A41.9 - SEPSIS, UNSPECIFIED ORGANISM Qualifiers: Sepsis type: sepsis due to unspecified organism Qualified Code(s): A41.9 - Sepsis, unspecified organism (4) Stroke Code(s): I63.9 - CEREBRAL INFARCTION, UNSPECIFIED Qualifiers: CVA mechanism: unspecified Qualified Code(s): I63.9 - Cerebral infarction, unspecified (5) Hypokalemia Code(s): E87.6 - HYPOKALEMIA
[2017-07-08 18:04] LABS: ANION GAP 8 (8-16); BLOOD UREA NITROGEN 11 mg/dL (7-18); CALCIUM 8.4 mg/dL (8.5-10.1); CHLORIDE 103 mmol/L (98-107); CO2 26 mmol/L (21-32); CREATININE 0.7 mg/dL (0.55-1.02); GLUCOSE,RANDOM 121 mg/dL (74-106); POTASSIUM 3.4 mmol/L (3.5-5.1); SODIUM 137 mmol/L (136-145)
[2017-07-08 18:15] LABS: BASO % 0.7 % (0-2.0); EOS % 1.4 % (0-4.5); HEMATOCRIT 41.4 % (32.4-45.2); HEMOGLOBIN 13.9 GM/dL (10.7-15.3); LYMPH % 43.3 % (8-40); MCH 29.9 pg (25.7-33.7); MCHC 33.5 g/dl (32.0-36.0); MEAN CELL VOLUME 89.2 fl (80-96); MEAN PLT VOLUME 8.4 fl (7.5-11.1); MONO % 10.5 % (3.8-10.2); NEUT % 44.1 % (42.8-82.8); PLATELET COUNT 237 K/MM3 (134-434); RBC 4.64 M/mm3 (3.60-5.2); RDW 13.3 % (11.6-15.6); WHITE BLOOD COUNT 5.2 K/mm3 (4.0-10.0)
[2017-07-08] MEDS ORDERED: PT OWN MED DRAWER 7, Y5N ONE (21:25)
[2017-07-08] MEDS ORDERED: MELATONIN 5 MG TABLETS PO ONE (22:45)
[2017-07-09] MEDS ORDERED: PT OWN MED DRAWER 7, Y5N ONE ×2 (01:27→21:53)
[2017-07-09] MEDS: PIPERACILLIN/TAZOB 3.375 GM 3.375 GM in DEXTROSE 5%-WATER - 100 ML IVPB SCH ×3 (01:30→17:24)
[2017-07-09] MEDS: LEVOTHYROXINE NA 75 MCG TABLET (FP) PO SCH (07:20)
[2017-07-09] MEDS: HYDROCHLOROTHIAZIDE 25 MG TABLET (FP) PO SCH (09:56)
[2017-07-09] MEDS: OSELTAMIVIR PHOSPHATE 30 MG CAPSULE PO SCH ×2 (09:56→22:03)
[2017-07-09] MEDS: HEPARIN NA (PORCINE) 5,000 UNITS/ML 1ML VIAL SQ SCH ×2 (09:56→22:03)
--- NOTE | 2017-07-09 15:24 | PN ---
Progress Note, Physician History of Present Illness: doing well still slightly confused family in room - Current Medication List Current Medications: Active Medications Acetaminophen (Tylenol -) 650 mg PO Q6H PRN PRN Reason: FEVER OR PAIN Last Admin: 07/08/17 21:40 Dose: 650 mg Heparin Sodium (Porcine) (Heparin -) 5,000 unit SQ BID [facility] Last Admin: 07/09/17 09:56 Dose: 5,000 unit Hydrochlorothiazide (Hctz -) 25 mg PO DAILY [facility] Last Admin: 07/09/17 09:56 Dose: 25 mg Potassium Chloride/Dextrose/Sod Cl (D5-1/2ns+20 Meq Kcl -) 20 meq in 1,000 mls @ 75 mls/hr IV ASDIR [facility] Last Admin: 07/08/17 22:56 Dose: 75 mls/hr Piperacillin Sod/Tazobactam (Sod 3.375 gm/ Dextrose) 100 mls @ 200 mls/hr IVPB Q8H-IV [facility] Last Admin: 07/09/17 09:56 Dose: 200 mls/hr Levothyroxine Sodium (Synthroid -) 75 mcg PO DAILY@0700 [facility] Last Admin: 07/09/17 07:20 Dose: 75 mcg Oseltamivir Phosphate (Tamiflu -) 30 mg PO BID [facility] Stop: 07/12/17 21:59 Last Admin: 07/09/17 09:56 Dose: 30 mg - Objective Vital Signs: Vital Signs Temperature 97.6 F 07/09/17 14:03 Pulse Rate 65 07/09/17 14:03 Respiratory Rate 18 07/09/17 14:03 Blood Pressure 114/72 07/09/17 14:03 O2 Sat by Pulse Oximetry (%) 94 L 07/09/17 09:00 Constitutional: Yes: No Distress, Calm Cardiovascular: Yes: Regular Rate and Rhythm Respiratory: Yes: Regular, CTA Bilaterally Gastrointestinal: Yes: Normal Bowel Sounds, Soft Musculoskeletal: Yes: WNL Extremities: Yes: WNL Neurological: Yes: Alert, Confusion Psychiatric: Yes: Other Labs: CBC, BMP 07/08/17 17:05 07/08/17 17:05 INR, PTT INR 1.03 (0.82-1.09) 07/06/17 17:25 Assessment/Plan after looking at the history and the patient i am worried that the patient could be heading towards development of pneumonia.also her creatinine has increased influenza fever confusion pna plan continue abx rest as per primary will see how patient doing tomorrow rest as per primary team
--- NOTE | 2017-07-09 17:03 | PN ---
Progress Note, Physician Chief Complaint: Pt is feeling better No Fever History of Present Illness: 87 year old female, with a significant past medical history of hypertension, hyperlipidemia, hypothyroidism, overactive bladder, and seizures, admitted with increased confusion and changes in mental status for approximately 2 days. As per son, the patient was last known to be at baseline , however, yesterday, daughters brother in law noted increased confusion and changes in speech. Brother in Law has noted patient has been repeating her words and states patient reported she did not know where she was while in her home last night. Daughter reports patient has decreased appetite. Patient endorses mild dry cough, but denies any fever, chills, headache, dizziness, or lightheadedness. She denies any chest pain, shortness of breath, diaphoresis, or palpitations. She denies any abdominal pain, nausea, vomiting, diarrhea, or constipation. She denies any dysuria, hematuria, frequency, or urgency. Patients has no other complaints at this time, but history is limited due to current mental status. Pt is better today Better orientated Family at bedside - Current Medication List Current Medications: Active Medications Acetaminophen (Tylenol -) 650 mg PO Q6H PRN PRN Reason: FEVER OR PAIN Last Admin: 07/08/17 21:40 Dose: 650 mg Heparin Sodium (Porcine) (Heparin -) 5,000 unit SQ BID [facility] Last Admin: 07/09/17 09:56 Dose: 5,000 unit Hydrochlorothiazide (Hctz -) 25 mg PO DAILY [facility] Last Admin: 07/09/17 09:56 Dose: 25 mg Potassium Chloride/Dextrose/Sod Cl (D5-1/2ns+20 Meq Kcl -) 20 meq in 1,000 mls @ 75 mls/hr IV ASDIR [facility] Last Admin: 07/08/17 22:56 Dose: 75 mls/hr Piperacillin Sod/Tazobactam (Sod 3.375 gm/ Dextrose) 100 mls @ 200 mls/hr IVPB Q8H-IV [facility] Last Admin: 07/09/17 09:56 Dose: 200 mls/hr Levothyroxine Sodium (Synthroid -) 75 mcg PO DAILY@0700 [facility] Last Admin: 07/09/17 07:20 Dose: 75 mcg Oseltamivir Phosphate (Tamiflu -) 30 mg PO BID [facility] Stop: 07/12/17 21:59 Last Admin: 07/09/17 09:56 Dose: 30 mg - Objective Vital Signs: Vital Signs Temperature 97.6 F 07/09/17 14:03 Pulse Rate 65 07/09/17 14:03 Respiratory Rate 18 07/09/17 14:03 Blood Pressure 114/72 07/09/17 14:03 O2 Sat by Pulse Oximetry (%) 94 L 07/09/17 09:00 Constitutional: Yes: No Distress Eyes: Yes: Conjunctiva Clear, EOM Intact HENT: Yes: Atraumatic, Normocephalic Neck: Yes: Supple, Trachea Midline Cardiovascular: Yes: Regular Rate and Rhythm, S1, S2 Respiratory: Yes: Regular, CTA Bilaterally Gastrointestinal: Yes: Normal Bowel Sounds, Soft Labs: CBC, BMP 07/08/17 17:05 07/08/17 17:05 INR, PTT INR 1.03 (0.82-1.09) 07/06/17 17:25 Problem List - Problems (1) Altered mental status Code(s): R41.82 - ALTERED MENTAL STATUS, UNSPECIFIED Qualifiers: Altered mental status type: unspecified Qualified Code(s): R41.82 - Altered mental status, unspecified (2) Sepsis Code(s): A41.9 - SEPSIS, UNSPECIFIED ORGANISM Qualifiers: Sepsis type: sepsis due to unspecified organism Qualified Code(s): A41.9 - Sepsis, unspecified organism (3) Influenza Code(s): J11.1 - FLU DUE TO UNIDENTIFIED INFLUENZA VIRUS W OTH RESP MANIFEST (4) Stroke Code(s): I63.9 - CEREBRAL INFARCTION, UNSPECIFIED Qualifiers: CVA mechanism: unspecified Qualified Code(s): I63.9 - Cerebral infarction, unspecified (5) Hypokalemia Code(s): E87.6 - HYPOKALEMIA Assessment/Plan (1) Altered mental status Code(s): R41.82 - ALTERED MENTAL STATUS, UNSPECIFIED Qualifiers: Altered mental status type: unspecified Qualified Code(s): R41.82 - Altered mental status, unspecified (2) Influenza Code(s): J11.1 - FLU DUE TO UNIDENTIFIED INFLUENZA VIRUS W OTH RESP MANIFEST (3) Sepsis Code(s): A41.9 - SEPSIS, UNSPECIFIED ORGANISM Qualifiers: Sepsis type: sepsis due to unspecified organism Qualified Code(s): A41.9 - Sepsis, unspecified organism (4) Stroke Code(s): I63.9 - CEREBRAL INFARCTION, UNSPECIFIED Qualifiers: CVA mechanism: unspecified Qualified Code(s): I63.9 - Cerebral infarction, unspecified (5) Hypokalemia Code(s): E87.6 - HYPOKALEMIA
[2017-07-09] MEDS: D5-1/2NS+20 MEQ KCL - 20 MEQ/1,000 ML INFUS.BAG IV SCH (22:04)
[2017-07-10] MEDS: D5-1/2NS+20 MEQ KCL - 20 MEQ/1,000 ML INFUS.BAG IV SCH (01:48)
[2017-07-10] MEDS: PIPERACILLIN/TAZOB 3.375 GM 3.375 GM in DEXTROSE 5%-WATER - 100 ML IVPB SCH ×3 (01:51→17:08)
[2017-07-10] MEDS: LEVOTHYROXINE NA 75 MCG TABLET (FP) PO SCH (06:02)
[2017-07-10] MEDS ORDERED: PT OWN MED DRAWER 7, Y5N ONE ×2 (09:25→21:57)
[2017-07-10] MEDS: HYDROCHLOROTHIAZIDE 25 MG TABLET (FP) PO SCH (10:10)
[2017-07-10] MEDS: OSELTAMIVIR PHOSPHATE 30 MG CAPSULE PO SCH ×2 (10:10→21:44)
[2017-07-10] MEDS: HEPARIN NA (PORCINE) 5,000 UNITS/ML 1ML VIAL SQ SCH ×2 (10:10→21:43)
--- NOTE | 2017-07-10 14:25 | PN ---
Progress Note, Physician Chief Complaint: Pt fever and Orientation is better Pt had also swallowing evluation and neurology also History of Present Illness: 87 year old female, with a significant past medical history of hypertension, hyperlipidemia, hypothyroidism, overactive bladder, and seizures, admitted with increased confusion and changes in mental status for approximately 2 days. As per son, the patient was last known to be at baseline , however, yesterday, daughters brother in law noted increased confusion and changes in speech. Brother in Law has noted patient has been repeating her words and states patient reported she did not know where she was while in her home last night. Daughter reports patient has decreased appetite. Patient endorses mild dry cough, but denies any fever, chills, headache, dizziness, or lightheadedness. She denies any chest pain, shortness of breath, diaphoresis, or palpitations. She denies any abdominal pain, nausea, vomiting, diarrhea, or constipation. She denies any dysuria, hematuria, frequency, or urgency. Patients has no other complaints at this time, but history is limited due to current mental status. Pt is better today Better orientated - Current Medication List Current Medications: Active Medications Acetaminophen (Tylenol -) 650 mg PO Q6H PRN PRN Reason: FEVER OR PAIN Last Admin: 07/08/17 21:40 Dose: 650 mg Heparin Sodium (Porcine) (Heparin -) 5,000 unit SQ BID [facility] Last Admin: 07/10/17 10:10 Dose: 5,000 unit Hydrochlorothiazide (Hctz -) 25 mg PO DAILY [facility] Last Admin: 07/10/17 10:10 Dose: 25 mg Potassium Chloride/Dextrose/Sod Cl (D5-1/2ns+20 Meq Kcl -) 20 meq in 1,000 mls @ 75 mls/hr IV ASDIR [facility] Last Admin: 07/10/17 01:48 Dose: Not Given Piperacillin Sod/Tazobactam (Sod 3.375 gm/ Dextrose) 100 mls @ 200 mls/hr IVPB Q8H-IV [facility] Last Admin: 07/10/17 10:10 Dose: 200 mls/hr Levothyroxine Sodium (Synthroid -) 75 mcg PO DAILY@0700 [facility] Last Admin: 07/10/17 06:02 Dose: 75 mcg Oseltamivir Phosphate (Tamiflu -) 30 mg PO BID [facility] Stop: 07/12/17 21:59 Last Admin: 07/10/17 10:10 Dose: 30 mg - Objective Vital Signs: Vital Signs Temperature 98.7 F 07/10/17 13:58 Pulse Rate 65 07/10/17 13:58 Respiratory Rate 20 07/10/17 13:58 Blood Pressure 133/66 07/10/17 13:58 O2 Sat by Pulse Oximetry (%) 96 07/10/17 09:00 Constitutional: Yes: No Distress Eyes: Yes: Conjunctiva Clear, EOM Intact HENT: Yes: Atraumatic, Normocephalic Neck: Yes: Supple, Trachea Midline Cardiovascular: Yes: Regular Rate and Rhythm, S1, S2 Respiratory: Yes: Regular, CTA Bilaterally Gastrointestinal: Yes: Normal Bowel Sounds, Soft Musculoskeletal: Yes: Joint Stiffness Labs: CBC, BMP 07/08/17 17:05 07/08/17 17:05 INR, PTT INR 1.03 (0.82-1.09) 07/06/17 17:25 Problem List - Problems (1) Altered mental status Code(s): R41.82 - ALTERED MENTAL STATUS, UNSPECIFIED Qualifiers: Altered mental status type: unspecified Qualified Code(s): R41.82 - Altered mental status, unspecified (2) Sepsis Code(s): A41.9 - SEPSIS, UNSPECIFIED ORGANISM Qualifiers: Sepsis type: sepsis due to unspecified organism Qualified Code(s): A41.9 - Sepsis, unspecified organism (3) Influenza Code(s): J11.1 - FLU DUE TO UNIDENTIFIED INFLUENZA VIRUS W OTH RESP MANIFEST (4) Stroke Code(s): I63.9 - CEREBRAL INFARCTION, UNSPECIFIED Qualifiers: CVA mechanism: unspecified Qualified Code(s): I63.9 - Cerebral infarction, unspecified (5) Hypokalemia Code(s): E87.6 - HYPOKALEMIA Assessment/Plan (1) Altered mental status Code(s): R41.82 - ALTERED MENTAL STATUS, UNSPECIFIED Qualifiers: Altered mental status type: unspecified Qualified Code(s): R41.82 - Altered mental status, unspecified (2) Influenza Code(s): J11.1 - FLU DUE TO UNIDENTIFIED INFLUENZA VIRUS W OTH RESP MANIFEST (3) Sepsis Code(s): A41.9 - SEPSIS, UNSPECIFIED ORGANISM Qualifiers: Sepsis type: sepsis due to unspecified organism Qualified Code(s): A41.9 - Sepsis, unspecified organism (4) Stroke Code(s): I63.9 - CEREBRAL INFARCTION, UNSPECIFIED Qualifiers: CVA mechanism: unspecified Qualified Code(s): I63.9 - Cerebral infarction, unspecified (5) Hypokalemia Code(s): E87.6 - HYPOKALEMIA
[2017-07-10 15:01] LABS: BASO % 0.8 % (0-2.0); EOS % 1.7 % (0-4.5); HEMATOCRIT 41.8 % (32.4-45.2); LYMPH % 42.5 % (8-40); MCH 29.9 pg (25.7-33.7); MCHC 33.5 g/dl (32.0-36.0); MEAN CELL VOLUME 89.2 fl (80-96); MEAN PLT VOLUME 7.7 fl (7.5-11.1); MONO % 8.9 % (3.8-10.2); NEUT % 46.1 % (42.8-82.8); PLATELET COUNT 237 K/MM3 (134-434); RBC 4.69 M/mm3 (3.60-5.2); RDW 13.3 % (11.6-15.6); WHITE BLOOD COUNT 5.9 K/mm3 (4.0-10.0)
[2017-07-10 15:31] LABS: ANION GAP 7 (8-16); BLOOD UREA NITROGEN 8 mg/dL (7-18); CALCIUM 8.7 mg/dL (8.5-10.1); CHLORIDE 102 mmol/L (98-107); CO2 29 mmol/L (21-32); CREATININE 0.8 mg/dL (0.55-1.02); GLUCOSE,RANDOM 108 mg/dL (74-106); POTASSIUM 3.3 mmol/L (3.5-5.1); SODIUM 138 mmol/L (136-145)
--- NOTE | 2017-07-10 15:31 | PN ---
Progress Note, Physician History of Present Illness: patient stable no new issues - Current Medication List Current Medications: Active Medications Acetaminophen (Tylenol -) 650 mg PO Q6H PRN PRN Reason: FEVER OR PAIN Last Admin: 07/08/17 21:40 Dose: 650 mg Heparin Sodium (Porcine) (Heparin -) 5,000 unit SQ BID [facility] Last Admin: 07/10/17 10:10 Dose: 5,000 unit Hydrochlorothiazide (Hctz -) 25 mg PO DAILY [facility] Last Admin: 07/10/17 10:10 Dose: 25 mg Potassium Chloride/Dextrose/Sod Cl (D5-1/2ns+20 Meq Kcl -) 20 meq in 1,000 mls @ 75 mls/hr IV ASDIR [facility] Last Admin: 07/10/17 01:48 Dose: Not Given Piperacillin Sod/Tazobactam (Sod 3.375 gm/ Dextrose) 100 mls @ 200 mls/hr IVPB Q8H-IV [facility] Last Admin: 07/10/17 10:10 Dose: 200 mls/hr Levothyroxine Sodium (Synthroid -) 75 mcg PO DAILY@0700 [facility] Last Admin: 07/10/17 06:02 Dose: 75 mcg Oseltamivir Phosphate (Tamiflu -) 30 mg PO BID [facility] Stop: 07/12/17 21:59 Last Admin: 07/10/17 10:10 Dose: 30 mg Potassium Chloride (K-Dur -) 20 meq PO DAILY [facility] - Objective Vital Signs: Vital Signs Temperature 98.7 F 07/10/17 13:58 Pulse Rate 65 07/10/17 13:58 Respiratory Rate 20 07/10/17 13:58 Blood Pressure 133/66 07/10/17 13:58 O2 Sat by Pulse Oximetry (%) 96 07/10/17 09:00 Constitutional: Yes: No Distress, Calm Neck: Yes: Supple Cardiovascular: Yes: Regular Rate and Rhythm Respiratory: Yes: Regular, CTA Bilaterally Gastrointestinal: Yes: Normal Bowel Sounds, Soft Musculoskeletal: Yes: WNL Extremities: Yes: WNL Neurological: Yes: Alert, Confusion (minimal) Psychiatric: Yes: Alert Labs: CBC, BMP 07/10/17 14:45 INR, PTT INR 1.03 (0.82-1.09) 07/06/17 17:25 Assessment/Plan after looking at the history and the patient i am worried that the patient could be heading towards development of pneumonia.also her creatinine has increased influenza fever confusion pna plan continue abx and complete the course family in room
[2017-07-10] MEDS: POTASSIUM CHLORIDE TABS 20 MEQ TABLET.ER (FP) PO SCH (16:07)
[2017-07-11] MEDS: D5-1/2NS+20 MEQ KCL - 20 MEQ/1,000 ML INFUS.BAG IV SCH (00:04)
[2017-07-11] MEDS: LEVOTHYROXINE NA 75 MCG TABLET (FP) PO SCH (06:04)
[2017-07-11] MEDS: HYDROCHLOROTHIAZIDE 25 MG TABLET (FP) PO SCH (09:36)
[2017-07-11] MEDS: HEPARIN NA (PORCINE) 5,000 UNITS/ML 1ML VIAL SQ SCH ×2 (09:36→21:10)
[2017-07-11] MEDS: POTASSIUM CHLORIDE TABS 20 MEQ TABLET.ER (FP) PO SCH (09:36)
[2017-07-11] MEDS: OSELTAMIVIR PHOSPHATE 30 MG CAPSULE PO SCH ×2 (09:36→21:11)
--- NOTE | 2017-07-11 15:27 | PN ---
Progress Note, Physician History of Present Illness: patient stable no new issues looking much better - Current Medication List Current Medications: Active Medications Acetaminophen (Tylenol -) 650 mg PO Q6H PRN PRN Reason: FEVER OR PAIN Last Admin: 07/08/17 21:40 Dose: 650 mg Heparin Sodium (Porcine) (Heparin -) 5,000 unit SQ BID [facility] Last Admin: 07/11/17 09:36 Dose: 5,000 unit Hydrochlorothiazide (Hctz -) 25 mg PO DAILY [facility] Last Admin: 07/11/17 09:36 Dose: 25 mg Potassium Chloride/Dextrose/Sod Cl (D5-1/2ns+20 Meq Kcl -) 20 meq in 1,000 mls @ 75 mls/hr IV ASDIR [facility] Last Admin: 07/11/17 00:04 Dose: 75 mls/hr Levothyroxine Sodium (Synthroid -) 75 mcg PO DAILY@0700 [facility] Last Admin: 07/11/17 06:04 Dose: 75 mcg Oseltamivir Phosphate (Tamiflu -) 30 mg PO BID [facility] Stop: 07/12/17 21:59 Last Admin: 07/11/17 09:36 Dose: 30 mg Potassium Chloride (K-Dur -) 20 meq PO DAILY [facility] Last Admin: 07/11/17 09:36 Dose: 20 meq - Objective Vital Signs: Vital Signs Temperature 98.2 F 07/11/17 14:16 Pulse Rate 65 07/11/17 14:16 Respiratory Rate 16 07/11/17 14:16 Blood Pressure 141/92 07/11/17 14:16 O2 Sat by Pulse Oximetry (%) 96 07/11/17 09:00 Constitutional: Yes: No Distress, Calm Cardiovascular: Yes: Regular Rate and Rhythm Respiratory: Yes: Regular, CTA Bilaterally Gastrointestinal: Yes: Normal Bowel Sounds, Soft Musculoskeletal: Yes: WNL Extremities: Yes: WNL Neurological: Yes: Alert, Other Psychiatric: Yes: Alert, Oriented Labs: CBC, BMP 07/10/17 14:45 07/10/17 14:45 INR, PTT INR 1.03 (0.82-1.09) 07/06/17 17:25 Assessment/Plan Problem List - Problems (1) Altered mental status Code(s): R41.82 - ALTERED MENTAL STATUS, UNSPECIFIED Qualifiers: Altered mental status type: unspecified Qualified Code(s): R41.82 - Altered mental status, unspecified (2) Sepsis Code(s): A41.9 - SEPSIS, UNSPECIFIED ORGANISM Qualifiers: Sepsis type: sepsis due to unspecified organism Qualified Code(s): A41.9 - Sepsis, unspecified organism (3) Influenza Code(s): J11.1 - FLU DUE TO UNIDENTIFIED INFLUENZA VIRUS W OTH RESP MANIFEST (4) Stroke Code(s): I63.9 - CEREBRAL INFARCTION, UNSPECIFIED Qualifiers: CVA mechanism: unspecified Qualified Code(s): I63.9 - Cerebral infarction, unspecified (5) Hypokalemia Code(s): E87.6 - HYPOKALEMIA plan stop all abx tomorrow rest as per neurology primary care discussed with the family
--- NOTE | 2017-07-11 16:34 | PN ---
Progress Note, Physician Chief Complaint: Pt is much better today No Fever No SOB History of Present Illness: Pt BP is high we will DC IV fluids Pt HR is low we will have holter Monitor - Current Medication List Current Medications: Active Medications Acetaminophen (Tylenol -) 650 mg PO Q6H PRN PRN Reason: FEVER OR PAIN Last Admin: 07/08/17 21:40 Dose: 650 mg Heparin Sodium (Porcine) (Heparin -) 5,000 unit SQ BID [facility] Last Admin: 07/11/17 09:36 Dose: 5,000 unit Hydrochlorothiazide (Hctz -) 25 mg PO DAILY [facility] Last Admin: 07/11/17 09:36 Dose: 25 mg Potassium Chloride/Dextrose/Sod Cl (D5-1/2ns+20 Meq Kcl -) 20 meq in 1,000 mls @ 75 mls/hr IV ASDIR [facility] Last Admin: 07/11/17 00:04 Dose: 75 mls/hr Levothyroxine Sodium (Synthroid -) 75 mcg PO DAILY@0700 [facility] Last Admin: 07/11/17 06:04 Dose: 75 mcg Oseltamivir Phosphate (Tamiflu -) 30 mg PO BID [facility] Stop: 07/12/17 21:59 Last Admin: 07/11/17 09:36 Dose: 30 mg Potassium Chloride (K-Dur -) 20 meq PO DAILY [facility] Last Admin: 07/11/17 09:36 Dose: 20 meq - Objective Vital Signs: Vital Signs Temperature 98.2 F 07/11/17 14:16 Pulse Rate 65 07/11/17 14:16 Respiratory Rate 16 07/11/17 14:16 Blood Pressure 141/92 07/11/17 14:16 O2 Sat by Pulse Oximetry (%) 96 07/11/17 09:00 Labs: CBC, BMP 07/10/17 14:45 07/10/17 14:45 INR, PTT INR 1.03 (0.82-1.09) 07/06/17 17:25 Problem List - Problems (1) Altered mental status Code(s): R41.82 - ALTERED MENTAL STATUS, UNSPECIFIED Qualifiers: Altered mental status type: unspecified Qualified Code(s): R41.82 - Altered mental status, unspecified (2) Sepsis Code(s): A41.9 - SEPSIS, UNSPECIFIED ORGANISM Qualifiers: Sepsis type: sepsis due to unspecified organism Qualified Code(s): A41.9 - Sepsis, unspecified organism (3) Influenza Code(s): J11.1 - FLU DUE TO UNIDENTIFIED INFLUENZA VIRUS W OTH RESP MANIFEST (4) Stroke Code(s): I63.9 - CEREBRAL INFARCTION, UNSPECIFIED Qualifiers: CVA mechanism: unspecified Qualified Code(s): I63.9 - Cerebral infarction, unspecified (5) Hypokalemia Code(s): E87.6 - HYPOKALEMIA Assessment/Plan (1) Altered mental status Code(s): R41.82 - ALTERED MENTAL STATUS, UNSPECIFIED Qualifiers: Altered mental status type: unspecified Qualified Code(s): R41.82 - Altered mental status, unspecified (2) Influenza Code(s): J11.1 - FLU DUE TO UNIDENTIFIED INFLUENZA VIRUS W OTH RESP MANIFEST (3) Sepsis Code(s): A41.9 - SEPSIS, UNSPECIFIED ORGANISM Qualifiers: Sepsis type: sepsis due to unspecified organism Qualified Code(s): A41.9 - Sepsis, unspecified organism (4) Stroke Code(s): I63.9 - CEREBRAL INFARCTION, UNSPECIFIED Qualifiers: CVA mechanism: unspecified Qualified Code(s): I63.9 - Cerebral infarction, unspecified (5) Hypokalemia Code(s): E87.6 - HYPOKALEMIA Pt will be Dced home in AM we will have a holter Monitor for Cem cardia we will cut down HCTZ to 12 .5
--- NOTE | 2017-07-11 16:46 | DS ---
Physical Examination Vital Signs: Vital Signs Temperature 98.2 F 07/11/17 14:16 Pulse Rate 65 07/11/17 14:16 Respiratory Rate 16 07/11/17 14:16 Blood Pressure 141/92 07/11/17 14:16 O2 Sat by Pulse Oximetry (%) 96 07/11/17 09:00 Constitutional: Yes: Well Nourished, No Distress Eyes: Yes: Conjunctiva Clear, EOM Intact HENT: Yes: Atraumatic, Normocephalic Neck: Yes: Supple, Trachea Midline Cardiovascular: Yes: Regular Rate and Rhythm, S1, S2 Respiratory: Yes: Regular, CTA Bilaterally Gastrointestinal: Yes: Normal Bowel Sounds, Soft Musculoskeletal: Yes: Joint Stiffness Edema: No Labs: CBC, BMP 07/10/17 14:45 07/10/17 14:45 Discharge Summary Reason For Visit: SEPSIS,AMS/MetabolicEnchephalopathy/INFLUENZA, Current Active Problems Altered mental status (Acute) Influenza (Acute) Sepsis (Acute) Stroke (Acute) Condition: Stable - Instructions Referrals: Crystal Read MD [Primary Care Provider] - 1 Week (to FU with DR Moreira in above office spoke with family also) Disposition: HOME - Home Medications Comprehensive Discharge Medication List: Ambulatory Orders Levothyroxine [Synthroid -] 75 mcg PO DAILY 10/18/13 cozar 50 mg Po BID [facility]Z 12.5 PO daily Simvastatin 10 mg PO DAILY 09/30/14
[2017-07-11] MEDS: LOSARTAN POTASSIUM 25 MG TABLET PO SCH (17:49)
[2017-07-11] MEDS ORDERED: LOSARTAN POTASSIUM 25 MG TABLET PO ONE (20:05)
[2017-07-11] MEDS ORDERED: PT OWN MED DRAWER 7, Y5N ONE (20:12)
[2017-07-12] MEDS: LEVOTHYROXINE NA 75 MCG TABLET (FP) PO SCH (06:12)
[2017-07-12 07:33] LABS: BASO % 0.6 % (0-2.0); EOS % 1.1 % (0-4.5); HEMATOCRIT 40.8 % (32.4-45.2); HEMOGLOBIN 13.7 GM/dL (10.7-15.3); LYMPH % 25.5 % (8-40); MCH 29.6 pg (25.7-33.7); MCHC 33.5 g/dl (32.0-36.0); MEAN CELL VOLUME 88.4 fl (80-96); MEAN PLT VOLUME 7.5 fl (7.5-11.1); MONO % 9.2 % (3.8-10.2); NEUT % 63.6 % (42.8-82.8); PLATELET COUNT 266 K/MM3 (134-434); RBC 4.62 M/mm3 (3.60-5.2); RDW 13.2 % (11.6-15.6); WHITE BLOOD COUNT 8.5 K/mm3 (4.0-10.0)
[2017-07-12 08:22] LABS: ANION GAP 7 (8-16); BLOOD UREA NITROGEN 7 mg/dL (7-18); CALCIUM 8.7 mg/dL (8.5-10.1); CHLORIDE 103 mmol/L (98-107); CO2 29 mmol/L (21-32); CREATININE 0.7 mg/dL (0.55-1.02); GLUCOSE,RANDOM 101 mg/dL (74-106); POTASSIUM 3.2 mmol/L (3.5-5.1); SODIUM 139 mmol/L (136-145)
--- NOTE | 2017-07-12 10:02 | PN ---
Progress Note, Physician History of Present Illness: stable no new issues still a bit confusion persists,but much better - Current Medication List Current Medications: Active Medications Acetaminophen (Tylenol -) 650 mg PO Q6H PRN PRN Reason: FEVER OR PAIN Last Admin: 07/08/17 21:40 Dose: 650 mg Heparin Sodium (Porcine) (Heparin -) 5,000 unit SQ BID [facility] Last Admin: 07/11/17 21:10 Dose: 5,000 unit Levothyroxine Sodium (Synthroid -) 75 mcg PO DAILY@0700 [facility] Last Admin: 07/12/17 06:12 Dose: 75 mcg Losartan Potassium (Cozaar -) 25 mg PO DAILY [facility] Last Admin: 07/11/17 17:49 Dose: 25 mg Potassium Chloride (K-Dur -) 20 meq PO DAILY [facility] Last Admin: 07/11/17 09:36 Dose: 20 meq - Objective Vital Signs: Vital Signs Temperature 98.2 F 07/12/17 06:00 Pulse Rate 83 07/12/17 06:00 Respiratory Rate 20 07/12/17 06:00 Blood Pressure 141/92 07/12/17 06:00 O2 Sat by Pulse Oximetry (%) 98 07/11/17 21:00 Constitutional: Yes: No Distress, Calm Cardiovascular: Yes: Regular Rate and Rhythm Respiratory: Yes: Regular, CTA Bilaterally Gastrointestinal: Yes: Normal Bowel Sounds, Soft Musculoskeletal: Yes: WNL Extremities: Yes: WNL Neurological: Yes: Alert Psychiatric: Yes: Alert Labs: CBC, BMP 07/12/17 06:45 07/12/17 06:45 INR, PTT INR 1.03 (0.82-1.09) 07/06/17 17:25 Assessment/Plan after looking at the history and the patient i am worried that the patient could be heading towards development of pneumonia.also her creatinine has increased influenza fever confusion pna plan no abx to follow up wiht primary rest as per primary
[2017-07-12] MEDS: LOSARTAN POTASSIUM 50 MG TABLET (FP) PO SCH (10:12)
[2017-07-12] MEDS: HEPARIN NA (PORCINE) 5,000 UNITS/ML 1ML VIAL SQ SCH ×2 (10:12→21:10)
[2017-07-12] MEDS: POTASSIUM CHLORIDE TABS 20 MEQ TABLET.ER (FP) PO SCH (10:12)
[2017-07-12] MEDS: OSELTAMIVIR PHOSPHATE 30 MG CAPSULE PO SCH (10:13)
[2017-07-12] MEDS: LOSARTAN POTASSIUM 25 MG TABLET PO SCH (10:13)
[2017-07-12] MEDS ORDERED: LOSARTAN POTASSIUM 50 MG TABLET (FP) PO ONE (18:30)
--- NOTE | 2017-07-12 22:51 | PN ---
Progress Note, Physician - Current Medication List Current Medications: Active Medications Acetaminophen (Tylenol -) 650 mg PO Q6H PRN PRN Reason: FEVER OR PAIN Last Admin: 07/08/17 21:40 Dose: 650 mg Heparin Sodium (Porcine) (Heparin -) 5,000 unit SQ BID [facility] Last Admin: 07/12/17 21:10 Dose: 5,000 unit Levothyroxine Sodium (Synthroid -) 75 mcg PO DAILY@0700 [facility] Last Admin: 07/12/17 06:12 Dose: 75 mcg Losartan Potassium (Cozaar -) 50 mg PO DAILY [facility] Last Admin: 07/12/17 10:12 Dose: 50 mg Potassium Chloride (K-Dur -) 20 meq PO DAILY [facility] Last Admin: 07/12/17 10:12 Dose: 20 meq - Objective Vital Signs: Vital Signs Temperature 98.1 F 07/12/17 22:00 Pulse Rate 82 07/12/17 22:00 Respiratory Rate 20 07/12/17 22:00 Blood Pressure 153/74 07/12/17 22:00 O2 Sat by Pulse Oximetry (%) 98 07/12/17 20:55 Labs: CBC, BMP 07/12/17 06:45 07/12/17 06:45 INR, PTT INR 1.03 (0.82-1.09) 07/06/17 17:25 Problem List - Problems (1) Altered mental status Code(s): R41.82 - ALTERED MENTAL STATUS, UNSPECIFIED Qualifiers: Altered mental status type: unspecified Qualified Code(s): R41.82 - Altered mental status, unspecified (2) Sepsis Code(s): A41.9 - SEPSIS, UNSPECIFIED ORGANISM Qualifiers: Sepsis type: sepsis due to unspecified organism Qualified Code(s): A41.9 - Sepsis, unspecified organism (3) Influenza Code(s): J11.1 - FLU DUE TO UNIDENTIFIED INFLUENZA VIRUS W OTH RESP MANIFEST (4) Stroke Code(s): I63.9 - CEREBRAL INFARCTION, UNSPECIFIED Qualifiers: CVA mechanism: unspecified Qualified Code(s): I63.9 - Cerebral infarction, unspecified (5) Hypokalemia Code(s): E87.6 - HYPOKALEMIA (6) Metabolic encephalopathy Code(s): G93.41 - METABOLIC ENCEPHALOPATHY
[2017-07-13] MEDS: LEVOTHYROXINE NA 75 MCG TABLET (FP) PO SCH (06:21)
[2017-07-13 09:33] VITALS: TEMP 98.2
[2017-07-13] MEDS: POTASSIUM CHLORIDE TABS 20 MEQ TABLET.ER (FP) PO SCH (09:37)
[2017-07-13] MEDS: LOSARTAN POTASSIUM 50 MG TABLET (FP) PO SCH (09:37)
[2017-07-13] MEDS: HEPARIN NA (PORCINE) 5,000 UNITS/ML 1ML VIAL SQ SCH (09:37)
--- NOTE | 2017-07-13 12:08 | PN ---
Progress Note, Physician - Current Medication List Current Medications: Active Medications Acetaminophen (Tylenol -) 650 mg PO Q6H PRN PRN Reason: FEVER OR PAIN Last Admin: 07/08/17 21:40 Dose: 650 mg Heparin Sodium (Porcine) (Heparin -) 5,000 unit SQ BID [facility] Last Admin: 07/13/17 09:37 Dose: 5,000 unit Levothyroxine Sodium (Synthroid -) 75 mcg PO DAILY@0700 [facility] Last Admin: 07/13/17 06:21 Dose: 75 mcg Losartan Potassium (Cozaar -) 50 mg PO DAILY [facility] Last Admin: 07/13/17 09:37 Dose: 50 mg Potassium Chloride (K-Dur -) 20 meq PO DAILY [facility] Last Admin: 07/13/17 09:37 Dose: 20 meq - Objective Vital Signs: Vital Signs Temperature 98.2 F 07/13/17 08:10 Pulse Rate 94 H 07/13/17 08:10 Respiratory Rate 16 07/13/17 08:10 Blood Pressure 154/74 07/13/17 08:10 O2 Sat by Pulse Oximetry (%) 98 07/12/17 20:55 Labs: CBC, BMP 07/12/17 06:45 07/12/17 06:45 INR, PTT INR 1.03 (0.82-1.09) 07/06/17 17:25 Problem List - Problems (1) Altered mental status Code(s): R41.82 - ALTERED MENTAL STATUS, UNSPECIFIED Qualifiers: Altered mental status type: unspecified Qualified Code(s): R41.82 - Altered mental status, unspecified (2) Sepsis Code(s): A41.9 - SEPSIS, UNSPECIFIED ORGANISM Qualifiers: Sepsis type: sepsis due to unspecified organism Qualified Code(s): A41.9 - Sepsis, unspecified organism (3) Influenza Code(s): J11.1 - FLU DUE TO UNIDENTIFIED INFLUENZA VIRUS W OTH RESP MANIFEST (4) Stroke Code(s): I63.9 - CEREBRAL INFARCTION, UNSPECIFIED Qualifiers: CVA mechanism: unspecified Qualified Code(s): I63.9 - Cerebral infarction, unspecified (5) Hypokalemia Code(s): E87.6 - HYPOKALEMIA (6) Metabolic encephalopathy Code(s): G93.41 - METABOLIC ENCEPHALOPATHY
[2017-07-13 12:38] VITALS: BP 144/74; PULSE 88
--- NOTE | 2017-07-19 11:41 | HOL ---
Hook-up date: 2017-07-12 09:33:00 Duration: 23:20:00 Test Indications: BRADYCARDIA Medications: 37918 QRS complexes 3344 Ventricular ectopics which represent 3 % of total QRS comp. 2727 Supraventricular ectopics which represent 2 % of total QRS comp. * Paced QRS complexs which represent % of total QRS comp. 2 % of Time Classified as Noise VENTRICULAR ECTOPY 2670 Isolated 48 Bigeminal Cycles 319 Couplets 10 Runs 31 Beats in Runs 4 Beats LONGEST at 193 BPM at 20:10:41 2017-07-12 3 Beats FASTEST at 200 BPM at 12:50:55 2017-07-12 SUPRAVENTRICULAR ECTOPY 2256 Isolated 90 Couplets 54 Runs 291 Beats in Runs 15 Beats LONGEST at 82 BPM at 03:57:06 2017-07-13 3 Beats FASTEST at 182 BPM at 05:06:05 2017-07-13 HEART RATES 42 MIN at 23:00:56 2017-07-12 71 AVG 156 MAX at 07:35:41 2017-07-13 LONGEST RR 1.280 secs at 01:51:00 2017-07-13 SCANNED BY RAMIN KYLE ON 07/13/2017 1. The underlying rhythm is sinus. Average heart rate of 71 BPM 2. There were frequent APC's and PVC's 3. There were several runs of PSVT, the longest was 10 beats at 131 BPM and fastest 6 beats at 148 BPM. 4. There were several runs of NSVT the longest 4 beats at 193 BPM and fastest 3 beats at 200 BPM 5. No significant pauses. Confirmed by JOSE SHELL MD ([id number]), story editor RADHA SLATER (1) on 07/18/2017 9:26:32 AM Also confirmed by JOSE SHELL MD ([id number]), RADHA Rosas (1) on 07/19/2017 11:13:57 AM Also confirmed by JOSE SHELL MD ([id number]), RADHA Rosas (1) on 07/19/2017 11:40:16 AM Referred By: Overread By: JOSE SHELL MD
== END 2017-07-13 13:19 | disposition home or self-care (01) | DRG 871 ==
LOC: JER 12:11 → JERBED 23:20 → J4S 07-07 14:10
PROVIDERS: ADMIT Internal Medicine; ATTEND Internal Medicine
DX: A41.9 Sepsis, unspecified organism (principal); G93.41 Metabolic encephalopathy; G40.89 Other seizures; I10 Essential (primary) hypertension; E78.5 Hyperlipidemia, unspecified; N32.81 Overactive bladder; E03.9 Hypothyroidism, unspecified; F03.90 Unspecified dementia, unspecified severity, without behavioral disturbance, psychotic disturbance, mood disturbance, and anxiety; R41.0 Disorientation, unspecified; M19.90 Unspecified osteoarthritis, unspecified site; J11.1 Influenza due to unidentified influenza virus with other respiratory manifestations; E87.6 Hypokalemia
CPT/HCPCS: 36415; 70450-TC; 71010-TC; 73564-TC-RT; 80048; 80053; 80061; 81003; 81015; 82550; 82803; 83605; 83721; 83735; 83880; 84443; 84484; 85025; 85610; 85730; 86850; 86900; 86901; 87040; 87086; 87804; 93005; 93010; 93225; 93226; 93970-TC; 99284-25; J1644

== ENCOUNTER 2018-03-21 13:20 | Emergency (ER) | payer BC, OTHER ==
[2018-03-21 13:38] VITALS: BP 194/99; PULSE 66; TEMP 98.1; BMI 24.8
--- NOTE | 2018-03-21 13:53 | PDOC ---
History of Present Illness - General Chief Complaint: Injury Stated Complaint: FELL ON TUESDAY Time Seen by Provider: 03/21/18 13:38 History Source: Patient Exam Limitations: No Limitations - History of Present Illness Initial Comments: 03/21/18 13:53 The patient is an 87F with a PMH of hypertension, hyperlipidemia, hypothyroidism, overactive bladder, and seizures who presents to the ER after having a mechanical fall. The patient states that 2 days ago, she tripped on a slipper in her bathroom and fell, hitting her head on the way down. She denies any injuries to any other parts of her body. She denies LOC, numbness, tingling , weakness, CP, SOB, changes in her vision, nausea, or vomiting. Past History - Past Medical History Allergies/Adverse Reactions: Allergies Allergy/AdvReac Type Severity Reaction Status Date / Time No Known Allergies Allergy Verified 03/21/18 13:21 Home Medications: Ambulatory Orders Levothyroxine [Synthroid -] 75 mcg PO DAILY 10/18/13 Hydrochlorothiazide [Hctz -] 25 mg PO DAILY 09/30/14 Simvastatin 10 mg PO DAILY 09/30/14 Donepezil HCl [Aricept] 5 mg PO DAILY 03/21/18 CVA: No COPD: No DVT: No Disorders: Yes (OVERACTIVE BLADDER) HTN: Yes Hypercholesterolemia: Yes Seizures: Yes Thyroid Disease: Yes (hypo) - Immunization History Immunization Up to Date: No - Suicide/Smoking/Psychosocial Hx Smoking Status: No Smoking History: Never smoked Have you smoked in the past 12 months: No Number of Cigarettes Smoked Daily: 0 Information on smoking cessation initiated: No Hx Alcohol Use: No Drug/Substance Use Hx: No Substance Use Type: None Hx Substance Use Treatment: No Review of Systems - Review of Systems Able to Perform ROS?: Yes Comments:: 03/21/18 14:41 GENERAL/CONSTITUTIONAL: No fever or chills. No weakness. HEAD, EYES, EARS, NOSE AND THROAT: No change in vision. No ear pain or discharge. No sore throat. CARDIOVASCULAR: No chest pain, palpitations, or lightheadedness. RESPIRATORY: No cough, wheezing, shortness of breath, or hemoptysis. GASTROINTESTINAL: No nausea, vomiting, diarrhea, constipation, or abdominal pain. GENITOURINARY: No dysuria, frequency, hematuria, or change in urination. MUSCULOSKELETAL: No joint or muscle swelling or pain. No neck or back pain. SKIN: No rash or lesions. NEUROLOGIC: No headache, numbness, tingling, focal weakness, loss of consciousness, or change in strength/sensation. Is the patient limited [place] proficient: No *Physical Exam - Vital Signs Last Vital Signs Temp Pulse Resp BP Pulse Ox 98.1 F 66 20 194/99 99 03/21/18 13:21 03/21/18 13:21 03/21/18 13:21 03/21/18 13:21 03/21/18 13:21 - Physical Exam Comments: 03/21/18 14:41 GENERAL: Well developed, well nourished. Awake and alert. No acute distress. HEENT: Normocephalic. Ecchymosis over L forehead and periorbital. Hearing grossly normal. Moist mucous membranes. PERRLA, EOMI. No conjunctival pallor. Sclera are non-icteric. NECK: Supple. Full ROM. No JVD. CARDIOVASCULAR: Regular rate and rhythm. No murmurs, rubs, or gallops. PULMONARY: No evidence of respiratory distress. Lungs clear to auscultation bilaterally. No wheezing, rales or rhonchi. ABDOMINAL: Soft. Non-tender. Non-distended. No rebound or guarding. GENITOURINARY: No CVA tenderness bilaterally. MUSCULOSKELETAL: Normal range of motion at all joints. No bony deformities or tenderness. EXTREMITIES: No cyanosis. No clubbing. No edema. No calf tenderness or swelling. SKIN: Warm and dry. Normal capillary refill. No rashes. No jaundice. NEUROLOGICAL: Alert, awake, appropriate. Cranial nerves 2-12 intact. Normal speech. Gait is normal without ataxia. PSYCHIATRIC: Cooperative. Good eye contact. Appropriate mood and affect. ED Treatment Course - RADIOLOGY Radiology Studies Ordered: Category Date Time Status HEAD CT WITHOUT CONTRAST [CT] Stat CT Scan 03/21/18 13:49 Ordered Medical Decision Making - Medical Decision Making 03/21/18 14:46 The patient is an 87F who presents after having an unwitnessed mechanical fall. CTH negative. Pending CT facial bones. The day that she fell, she walked around a grocery store with her son who did not even know she fell. Currently asymptomatic. 03/21/18 15:[address] facial bones negative. Pt informed and ready for d/c. *DC/Admit/Observation/Transfer Diagnosis at time of Disposition: Accident due to mechanical fall without injury Qualifiers: Encounter type: initial encounter Qualified Code(s): W19.XXXA - Unspecified fall, initial encounter - Discharge Dispostion Disposition: HOME Condition at time of disposition: Stable Decision to Admit order: No - Referrals - Patient Instructions Printed Discharge Instructions: How to Prevent Falls Additional Instructions: Please follow up with your primary care physician in 2-3 days. Please return to the ER if you have any signs or symptoms of chest pain, shortness of breath, uncontrollable fever, chills, nausea, vomiting, numbness, tingling, or weakness in any part of your body, changes in vision, or slurred speech. Please return to the ER if symptoms persist, worsen, or new symptoms arise. - Post Discharge Activity
--- NOTE | 2018-03-21 14:29 | PDOC ---
Attending Attestation - Resident Resident Name: DerickCarrillo peres - ED Attending Attestation I have performed the following: I have examined & evaluated the patient, The case was reviewed & discussed with the resident, I agree w/resident's findings & plan, Exceptions are as noted - HPI HPI: 03/21/18 14:28 Agree with residents note - Physicial Exam PE: 03/21/18 14:29 Agree with Residents PE - Medical Decision Making 03/21/18 18:05 Mechanical fall on Tuesday well-appearing no apparent distress ecchymosis around left eye extraocular movements intact. CT facial CT head with no acute findings. Findings discussed with family. Findings, need for follow-up and strict return instructions discussed with patient and family.
== END 2018-03-21 15:57 | disposition home or self-care (01) ==
LOC: FER 13:20
DX: S09.90XA Unspecified injury of head, initial encounter (principal); W18.39XA Other fall on same level, initial encounter; Y93.89 Activity, other specified; Y92.002 Bathroom of unspecified non-institutional (private) residence as the place of occurrence of the external cause; I10 Essential (primary) hypertension; E03.9 Hypothyroidism, unspecified; R56.9 Unspecified convulsions; E78.00 Pure hypercholesterolemia, unspecified
CPT/HCPCS: 70450-TC; 70486-TC; 99281-25